=== PATIENT | female | born 1930 | race American Indian/Alaskan Native ===

== ENCOUNTER 2018-01-18 11:19 | Inpatient (IN) | payer MEDICARE, BC ==
[2018-01-18 11:22] VITALS: BMI 29.2
[2018-01-18] MEDS ORDERED: Vancomycin 1gm in NS 250ml 1 GM/250 ML BAG IVPB STA (11:34)
[2018-01-18] MEDS ORDERED: Cefepime 1gm in NS 100ml 1 GM/100 ML BAG IVPB STA (11:34)
--- NOTE | 2018-01-18 11:50 | ED PDOC ---
Arrival/HPI - General Chief Complaint: Abnormal Skin Integrity Time Seen by Provider: 01/18/18 11:23 Historian: Patient - History of Present Illness Narrative History of Present Illness (Text): 01/18/18 11:51 An 87 year old female, whose past medical history includes dementia, presents to the emergency department for evaluation of worsening decubitus ulcers. Patient's family reports patient needs more help at home taking care of these worsening bedsores. Patient's family reports they have been treating wound for two weeks, with no improvement. Patient denies any fever, Shortness of breath, cough or any other complaints at this time. PMD: Dr. Meraz Symptom Onset: Sudden Symptom Course: Unchanged Activities at Onset: Rest Context: Home Past Medical History - Provider Review Nursing Documentation Reviewed: Yes - Infectious Disease Hx of Infectious Diseases: None - Tetanus Immunization Tetanus Immunization: Unknown - Cardiac Hx Cardiac Disorders: No - Pulmonary Hx Respiratory Disorders: No - Neurological Hx Neurological Disorder: Yes Hx Alzheimer's Disease: Yes - HEENT Hx HEENT Disorder: No (WEARS RX GLASSES) - Renal Hx Renal Disorder: No - Endocrine/Metabolic Hx Endocrine Disorders: No - Hematological/Oncological Hx Blood Disorders: No - Integumentary Hx Dermatological Disorder: Yes (BILATERAL KNEE EDEMA +3) - Musculoskeletal/Rheumatological Hx Arthritis: Yes - Gastrointestinal Hx Gastrointestinal Disorders: No - Genitourinary/Gynecological Hx Genitourinary Disorders: Yes Hx Reproductive Disorders: No - Psychiatric Hx Psychophysiologic Disorder: No Hx Anxiety: No Hx Bipolar Disorder: No Hx Depression: No Hx Emotional Abuse: No Hx Hallucinations: No Hx Panic Disorder: No Hx Post Traumatic Stress Disorder: No Hx Psychosis: No Hx Physical Abuse: No Hx Schizophrenia: No Hx Sexual Abuse: No Hx Substance Use: No - Surgical History Hx Orthopedic Surgery: Yes (BILAT HIP) - Anesthesia Hx Anesthesia: Yes Hx Anesthesia Reactions: No Hx Malignant Hyperthermia: No - Suicidal Assessment Feels Threatened In Home Enviroment: No Family/Social History - Physician Review Nursing Documentation Reviewed: Yes Family/Social History: No Known Family HX Smoking Status: Never Smoked Hx Alcohol Use: No Hx Substance Use: No Hx Substance Use Treatment: No Allergies/Home Meds Allergies/Adverse Reactions: Allergies No Known Allergies Allergy (Verified 05/27/15 21:26) Home Medications: Home Meds Medication Instructions Recorded Confirmed Donepezil [Aricept] 1 tab PO HS 01/18/18 01/18/18 Mirtazapine [Remeron] 1 tab PO HS 01/18/18 01/18/18 Simvastatin [Zocor] 1 tab PO HS 01/18/18 01/18/18 Review of Systems - Physician Review All systems were reviewed & negative as marked: Yes - Review of Systems Constitutional: absent: Fevers Respiratory: absent: SOB, Cough Gastrointestinal: absent: Abdominal Pain Skin: Other (decubitus ulcers) Neurological: absent: Headache Physical Exam Vital Signs Reviewed: Yes Vital Signs Temp Pulse Resp BP Pulse Ox 01/18/18 12:15 97.9 F 73 18 142/81 97 Appearance: Positive for: Comfortable, Cachectic, Other (thin) Pain Distress: None Mental Status: Positive for: Alert and Oriented X 3 - Systems Exam Head: Present: Atraumatic, Normocephalic Pupils: Present: PERRL Extroacular Muscles: Present: EOMI Conjunctiva: Present: Normal Mouth: Present: Moist Mucous Membranes Neck: Present: Normal Range of Motion Respiratory/Chest: Present: Clear to Auscultation, Good Air Exchange. No: Respiratory Distress, Accessory Muscle Use Cardiovascular: Present: Regular Rate and Rhythm, Normal S1, S2. No: Murmurs Abdomen: No: Tenderness, Distention, Peritoneal Signs Back: Present: Normal Inspection Upper Extremity: Present: Normal Inspection. No: Cyanosis, Edema Lower Extremity: Present: Normal Inspection. No: Edema Neurological: Present: GCS=15, CN II-XII Intact, Speech Normal Skin: Present: Other (2 stage 2 decubitus ulcers to buttock) Psychiatric: Present: Alert Medical Decision Making ED Course and Treatment: 01/18/18 11:47 Impression: An 87 year old female with decubitus ulcers. Dr. Meraz evaluated patient at bedside. Worsening after outpatient treatment. Requesting antibiotics, SW consult and gen sx consult with admission under her service Plan: -- labs, blood cx, wound cx -- Maxipime, Vancomycin -- Reassess and disposition Prior Visits: Notes and results from previous visits were reviewed. Patient last reported to the emergency department on 05/27/15 for evaluation of right knee pain. - Lab Interpretations I have reviewed the lab results: Yes - Medication Orders Current Medication Orders: Acetaminophen (Tylenol 325mg Tab) 650 mg PO Q6H PRN PRN Reason: Fever >100.4 F Atorvastatin Calcium (Lipitor) 10 mg PO DIN CHRISTINA Donepezil HCl (Aricept) 10 mg PO HS [facility] Famotidine (Pepcid) 20 mg IVP DAILY CHRISTINA Vancomycin HCl (Vancomycin 1gm) 1 gm in 250 mls @ 167 mls/hr IVPB STAT STA PRN Reason: Protocol Stop: 01/18/18 13:03 Cefepime HCl 0.5 gm/ Sodium (Chloride) 100 mls @ 100 mls/hr IVPB Q12H CHRISTINA PRN Reason: Protocol Vancomycin HCl (Vancomycin 750 Mg In Ns) 750 mg in 250 mls @ 166.667 mls/hr IVPB Q12 [facility]INA Mirtazapine (Remeron) 15 mg PO HS [facility] Ondansetron HCl (Zofran Inj) 4 mg IVP Q6H PRN PRN Reason: Nausea/Vomiting Discontinued Medications Cefepime HCl (Maxipime 1gm) 1 gm in 100 mls @ 100 mls/hr IVPB STAT STA PRN Reason: Protocol Stop: 01/18/18 12:33 Last Admin: 01/18/18 11:57 Dose: 100 mls/hr eMAR Start Stop Document 01/18/18 11:57 EQ (Rec: 01/18/18 11:57 EQ [id number]) Intravenous Solution Start Date 01/18/18 Start Time 11:57 - Scribe Statement The provider has reviewed the documentation as recorded by the Scribe Deanna Villafana All medical record entries made by the Derekibpearl were at my direction and personally dictated by me. I have reviewed the chart and agree that the record accurately reflects my personal performance of the history, physical exam, medical decision making, and the department course for this patient. I have also personally directed, reviewed, and agree with the discharge instructions and disposition. Disposition/Present on Arrival - Present on Arrival Any Indicators Present on Arrival: No History of DVT/PE: No History of Uncontrolled Diabetes: No Urinary Catheter: No History of Decub. Ulcer: No History Surgical Site Infection Following: None - Disposition Have Diagnosis and Disposition been Completed?: Yes Diagnosis: Decubitus ulcer, Dementia Disposition: HOSPITALIZED Disposition Time: 11:48 Patient Plan: Admission Condition: FAIR
[2018-01-18] MEDS ORDERED: Vancomycin 1 g Inj IVPB SCH (12:45)
[2018-01-18 12:48] LABS: BASO # 0.03 K/mm3 (0.0-2.0); BASO % 0.4 % (0.0-3.0); EOS # 0.1 (0.0-0.7); EOS % 1.4 % (1.5-5.0); GRAN # 5.64 (1.4-6.5); GRAN % 72.4 % (50.0-68.0); HEMOGLOBIN 13.6 g/dL (12.0-16.0); LYMPH # 1.4 (1.2-3.4); LYMPH % 18.2 % (22.0-35.0); MEAN CELL VOLUME 85.7 fl (80.0-105.0); MEAN CORPUSCULAR HEMOGLOBIN 27.4 pg (25.0-35.0); MEAN CORPUSCULAR HGB CONC 31.9 g/dl (31.0-37.0); MEAN PLATELET VOLUME 9.6 fl (7.0-11.0); MONO # 0.6 (0.1-0.6); MONO % 7.6 % (1.0-6.0); RBC 4.97 10^6/uL (3.5-6.1); RED CELL DISTRIBUTION WIDTH 18.4 % (11.5-14.5); WHITE BLOOD COUNT 7.8 10^3/ul (4.5-11.0)
[2018-01-18 13:14] LABS: ALBUMIN 3.3 g/dL (3.0-4.8); CALCIUM 8.8 mg/dL (8.4-10.5); GFR AFRICAN-AMERICAN > 60; GFR NON-AFRICAN AMERICAN > 60
[2018-01-18 13:15] LABS: ALT/SGPT 36 U/L (7-56); AST/SGOT 43 U/L (14-36); BLOOD UREA NITROGEN 23 mg/dL (7-21)
--- NOTE | 2018-01-18 13:26 | CP.PCM.CON ---
History of Present Illness - History of Present Illness History of Present Illness: Surgery Consult Note for Dr. Brunner Reason for consult: sacral decubitus wound This is an 87 year old female with PMHx dementia who presents to the hospital for sacral wound. Patient with severe dementia. All history per at bedside. Per , the family has first noticed the patient's sacral wound about 2 weeks ago. They were prescribed an unspecified cream which has not helped the wound. Per their PMD, they were told to go to the hospital for further evaluation. The family has a home health aide who helps with ADLs. PMHx: dementia PSHx: bilateral hip replacements Allergies: NKA Social: Lives with , daughter, and son-in-law. Review of Systems - Review of Systems Systems not reviewed;Unavailable: Dementia Past Patient History - Infectious Disease Hx of Infectious Diseases: None - Tetanus Immunizations Tetanus Immunization: Unknown - Past Social History Smoking Status: Never Smoked - CARDIAC Hx Cardiac Disorders: No - PULMONARY Hx Respiratory Disorders: No - NEUROLOGICAL Hx Neurological Disorder: Yes Hx Alzheimer's Disease: Yes - HEENT Hx HEENT Problems: No (WEARS RX GLASSES) - RENAL Hx Chronic Kidney Disease: No - ENDOCRINE/METABOLIC Hx Endocrine Disorders: No - HEMATOLOGICAL/ONCOLOGICAL Hx Blood Disorders: No - INTEGUMENTARY Hx Dermatological Problems: Yes (BILATERAL KNEE EDEMA +3) - MUSCULOSKELETAL/RHEUMATOLOGICAL Hx Arthritis: Yes - GASTROINTESTINAL Hx Gastrointestinal Disorders: No - GENITOURINARY/GYNECOLOGICAL Hx Genitourinary Disorders: Yes Hx Reproductive Disorders: No - PSYCHIATRIC Hx Psychophysiologic Disorder: No Hx Anxiety: No Hx Bipolar Disorder: No Hx Depression: No Hx Emotional Abuse: No Hx Hallucinations: No Hx Panic Symptoms: No Hx Post Traumatic Stress Disorder: No Hx Psychosis: No Hx Physical Abuse: No Hx Schizophrenia: No Hx Sexual Abuse: No Hx Substance Use: No - SURGICAL HISTORY Hx Orthopedic Surgery: Yes (BILAT HIP) - ANESTHESIA Hx Anesthesia: Yes Hx Anesthesia Reactions: No Hx Malignant Hyperthermia: No Meds Allergies/Adverse Reactions: Allergies Allergy/AdvReac Type Severity Reaction Status Date / Time No Known Allergies Allergy Verified 05/27/15 21:26 - Medications Medications: Current Medications Acetaminophen (Tylenol 325mg Tab) 650 mg PO Q6H PRN PRN Reason: Fever >100.4 F Atorvastatin Calcium (Lipitor) 10 mg PO DIN CHRISTINA Donepezil HCl (Aricept) 10 mg PO HS [facility]STINA Famotidine (Pepcid 20mg/50ml Premix) 20 mg IVPB DAILY [facility]RISTINA Cefepime HCl 0.5 gm/ Sodium (Chloride) 100 mls @ 100 mls/hr IVPB Q12 CHRISTINA PRN Reason: Protocol Vancomycin HCl (Vancomycin 750 Mg In Ns) 750 mg in 250 mls @ 166.667 mls/hr IVPB Q12 [facility]STINA Mirtazapine (Remeron) 15 mg PO HS [facility] Ondansetron HCl (Zofran Inj) 4 mg IVP Q6H PRN PRN Reason: Nausea/Vomiting Physical Exam - Constitutional Appears: No Acute Distress - Head Exam Head Exam: ATRAUMATIC, NORMOCEPHALIC - Eye Exam Eye Exam: EOMI, Normal appearance - ENT Exam ENT Exam: Mucous Membranes Moist - Respiratory Exam Respiratory Exam: NORMAL BREATHING PATTERN. absent: Accessory Muscle Use - Cardiovascular Exam Cardiovascular Exam: +S1, +S2 - GI/Abdominal Exam GI & Abdominal Exam: Soft. absent: Tenderness - Extremities Exam Additional comments: Multiple bruises in different stages of healing on the legs bilaterally. Bilateral heel desquamation - Back Exam Additional comments: Stage 2 sacral decubitus ulcer approximately 4 cm in length located above gluteal cleft in the stages of healing. Separate 1-2 cm skin tears on the upper left and right buttocks. - Neurological Exam Neurological exam: Alert - Skin Skin Exam: Dry, Warm Results - Vital Signs Recent Vital Signs: Last Vital Signs Temp 97.9 F 01/18/18 12:15 Pulse 73 01/18/18 12:15 Resp 18 01/18/18 12:15 BP 142/81 01/18/18 12:15 Pulse Ox 97 01/18/18 12:15 - Labs Result Diagrams: 01/18/18 12:30 01/18/18 12:30 Labs: Laboratory Results - last 24 hr 01/18/18 01/18/18 12:30 12:30 WBC 7.8 D RBC 4.97 Hgb 13.6 Hct 42.6 MCV 85.7 MCH 27.4 MCHC 31.9 RDW 18.4 H Plt Count 152 MPV 9.6 Gran % 72.4 H Lymph % (Auto) 18.2 L Payette % (Auto) 7.6 H Eos % (Auto) 1.4 L Baso % (Auto) 0.4 Gran # 5.64 Lymph # (Auto) 1.4 Payette # (Auto) 0.6 Eos # (Auto) 0.1 Baso # (Auto) 0.03 Sodium 150 H Potassium 4.0 Chloride 110 H Carbon Dioxide 28 Anion Gap 16 BUN 23 H Creatinine 0.6 L Est GFR ( Amer) > 60 Est GFR (Non-Af Amer) > 60 Random Glucose 94 Calcium 8.8 Total Bilirubin 0.7 AST 43 H ALT 36 Alkaline Phosphatase 103 Total Protein 6.6 Albumin 3.3 Globulin 3.3 Albumin/Globulin Ratio 1.0 L Assessment & Plan - Assessment and Plan (Free Text) Assessment: This is an 87 year old female with PMHx dementia presenting for sacral wound. Appears to be a stage 2 healing wound. Plan: Air Mattress Reposition Q2H Nursing Communication orders: Place Santyl on sacral wound BID and then apply Optifoam dressing Apply heel protectors Discussed with Dr. Kannan Lee PGY-1
[2018-01-18] MEDS: Collagenase 250 Units/gm Ointment(30 gm) TOP SCH (18:06)
--- NOTE | 2018-01-18 18:18 | HP ---
DATE OF EXAM: 01/18/2018 HISTORY OF PRESENT ILLNESS: This 87-year-old female was examined in the [facility] ER and this case was reviewed in detail with herself, her Riccardo and physician, Isabell Faulkner, medical doctor. This 87-year-old female was brought to [facility] ER by her , Riccardo. She has been failing at home and is here for worsening decubitus ulcers. PAST MEDICAL HISTORY: Significant for Alzheimer dementia. She is wheelchair bound. She has a history of degenerative arthritis and obesity, and the patient was home with family and receiving local wound care to sacral bed sores with no improvement. She is now here for further evaluation of the above. REVIEW OF SYSTEMS: HEENT: Head review: No headache or seizure. Eyes review: No change in visual acuity. Ears review: No hearing loss. Throat review: No swallowing difficulty. NECK: No stiffness. CARDIAC: No chest pain. PULMONARY: No hemoptysis. GI: No hematemesis. : No dysuria. SKIN: Sacral decubiti. VASCULAR: The patient has no claudication. PSYCHOLOGIC: She has Alzheimer dementia. NEUROLOGIC: She has chronic Alzheimer dementia. SURGICAL HISTORY: She is status post bilateral hip replacements. SOCIAL HISTORY: She is a nondrinker, nonsmoker, non IV drug misuser. She is a retired schoolteacher. OUTPATIENT MEDICATIONS: Included Aricept 10 mg at bedtime, Remeron 15 mg at bedtime, and Zocor 10 mg p.o. at bedtime. FAMILY HISTORY: Noncontributory. PHYSICAL EXAMINATION: VITAL SIGNS: Temperature 99.2, respirations 16, pulse 80, blood pressure 130/72. Monitor shows normal sinus rhythm. HEENT: Head: Normocephalic, atraumatic. Eyes: No icterus. Ears: Clear. Throat: Noninjected. NECK: Supple. HEART: Regular, S1, S2. No pathological rubs, murmurs, or gallops. LUNGS: Clear. ABDOMEN: Soft. EXTREMITIES: No edema. SKIN: Stage II decubitus ulcer on buttocks. VASCULAR: Legs warm to touch. PSYCHOLOGIC: Alert. NEURO: Moves all four extremities to painful stimuli. LABORATORY DATA: Current labs are pending. Blood cultures and wound cultures have been ordered. The plan is to admit this patient to medical-surgical. I will order a consultation with Dr. Angel Brunner from Surgery regarding debridement of surgical wounds. She will be started on Maxipime 1 g IV every 24 hours and vancomycin 750 mg IV every 12 hours based on blood testing results. She will be ordered to have her medication from home and I will discuss with Social Service, home care needs for this patient as per family request. All of the above was discussed in detail with Dr. Faulkner in the emergency room as well as her , Riccardo Castillo. Greater than 75 minutes was spent in the care management, review of labs, orders, x-rays, workup, and treatment wishes for this patient. All questions were answered. Miranda Meraz MD MTDD
[2018-01-18] MEDS: Cefepime 0.5 GM in Sodium Chloride 0.9% 100 ML IVPB SCH (22:01)
[2018-01-18] MEDS ORDERED: Pneumococcal 23-Valent Vaccine IM ONE (22:29)
[2018-01-18] MEDS: Vancomycin 750mg 750 MG/250 ML BAG IVPB SCH (23:03)
[2018-01-19] MEDS ORDERED: Famotidine 20mg/50ml Premix IVPB SCH (10:00)
[2018-01-19] MEDS: Cefepime 0.5 GM in Sodium Chloride 0.9% 100 ML IVPB SCH ×2 (11:12→22:00)
[2018-01-19] MEDS: Vancomycin 750mg 750 MG/250 ML BAG IVPB SCH (11:13)
[2018-01-19] MEDS: Collagenase 250 Units/gm Ointment(30 gm) TOP SCH ×2 (11:20→17:53)
--- NOTE | 2018-01-19 14:14 | PN ---
DATE: 01/19/2018 SUBJECTIVE: This 87-year-old female remains hospitalized. This case was reviewed with Dr. Brunner from Surgery who has evaluated the patient regarding her sacral decubitus. At present, she has wound cultures pending as well as blood cultures that show no growth. She was admitted with slow to heal decubitus ulcer. The family has been attempting to treat as an outpatient with Silvadene and dry sterile dressings. Of note, the patient has severe dementia. She is basically bed and wheelchair bound and at present denies any fever, chills, chest pain or shortness of breath. PHYSICAL EXAMINATION: VITAL SIGNS: Her temperature is 98.2, respirations 18, pulse 78 and blood pressure 132/93 with a pulse ox of 95% on room air. HEENT: Head: Normocephalic, atraumatic. Eyes: No icterus. Ears: Clear. Throat: Noninjected. NECK: Supple. HEART: Regular S1, S2. LUNGS: Clear. ABDOMEN: Soft. EXTREMITIES: No edema. Examination of her sacrum shows a stage II 4 cm in length sacral ulcer located above her gluteal cleft with additional 1-2 cm skin tears noted on the right and left buttock area as well. VASCULAR: Legs warm to touch. PSYCHOLOGICAL: Alert. NEUROLOGIC: Consistent with chronic dementia. LABORATORY DATA: White count 7800, hemoglobin 13.6, hematocrit 42.6, platelets 152,000. Sodium 150, K 4, chloride 110, bicarb 28, BUN 23, creatinine 0.6, random sugar 94. Bilirubin 0.7, AST 43, ALT 36, alkaline phosphatase 103. 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 and a dry sterile dressing while maintaining this patient on an air mattress with heel protectors as well as fall precautions, aspiration precautions and turning the patient every 2 hours to prevent further skin irritation. She continues on a mechanical chopped, thin liquid diet with aspiration precautions. She will continue on Zofran 4 mg IV every 6 hours p.r.n. nausea, vomiting; vancomycin 750 mg IV every 12; Tylenol 650 mg p.o. every 6 hours p.r.n. pain or temperature greater than 101; Remeron 15 mg p.o. at bedtime; Pepcid 20 mg p.o. daily; Maxipime 0.5 g IV every 12; Lipitor 10 mg p.o. at dinner time; D5W at 100 mL/hour and Aricept 10 mg p.o. at bedtime. I will order a repeat basic metabolic panel for the a.m. I am awaiting the results of blood and wound cultures. Based on her clinical results and response, additional testing and interventions will be entertained. It is the family's desire for this patient to return to home with them providing 24 hours supervision and I will ask Social Service to discuss needed equipment including hospital bed and additional assistance aides with the who provides 24 hour supervision of this patient along with visiting nurse and home health aides. Greater than 35 minutes was spent in the care, management, review of labs, orders, x-rays and discussion of this patient with Surgery, Social Service and family. Miranda Meraz MD MTDD
[2018-01-20] MEDS: Vancomycin 750mg 750 MG/250 ML BAG IVPB SCH ×3 (00:28→22:31)
--- NOTE | 2018-01-20 01:34 | CON ---
DATE: HISTORY OF PRESENT ILLNESS: Cary Castillo is seen with the resident, I reviewed her note and agree with it. The patient is an 87-year-old bed-bound female, who was brought in by the family because of dementia and increasing ulcer in the sacrum. Notably the family was treating the patient at home and noticed it got worse. She has been bed-bound and is otherwise chronically ill. PHYSICAL EXAMINATION: I agreed with the resident's note from 01/18/2018. The bedsore is noted to be granulating with several areas of brief epithelization, the edges are epithelializing. The base is granular with some fibrin. PLAN: The plan will be to offload the patient using an air mattress, frequent turning and dry dressing. I would expect this to heal within 2 to 3 weeks. Angel Brunner MD
[2018-01-20 08:19] LABS: BLOOD UREA NITROGEN 14 mg/dL (7-21); GFR AFRICAN-AMERICAN > 60; GFR NON-AFRICAN AMERICAN > 60
[2018-01-20] MEDS ORDERED: Potassium Chloride 20 mEq ER Tab PO ONE (09:14)
[2018-01-20] MEDS: Cefepime 0.5 GM in Sodium Chloride 0.9% 100 ML IVPB SCH ×2 (10:23→21:32)
[2018-01-20] MEDS: Collagenase 250 Units/gm Ointment(30 gm) TOP SCH ×2 (10:26→17:40)
--- NOTE | 2018-01-20 14:37 | CARD ---
APPROVED REPORT EKG Measurement Heart [id number] <Conclusion> Sinus rhythm with APCs Left axis deviation PRWP NSSTW changes Prolonged QTc
--- NOTE | 2018-01-20 21:13 | PN ---
DATE: 01/20/2018 SUBJECTIVE: This 87-year-old female was examined at the bedside in the presence of her nurse, Ally Avila, registered nurse. The patient and I examined her sacral decubitus today which is clean, dry, and being treated with Santyl and an Optifoam dressing. The patient remains alert but confused in the setting of advanced Alzheimer's. She denies any fever, chills, chest pain, or shortness of breath and has exhibited no fevers while hospitalized. PHYSICAL EXAMINATION: VITAL SIGNS: Temperature is 97.8, respirations 18, pulse 82, and blood pressure 107/61 with a pulse ox of 98% room air. HEENT: Head: Normocephalic, atraumatic. Eyes: No icterus. Ears: Clear. Throat: Noninjected. NECK: Supple. HEART: Regular S1, S2. LUNGS: Clear. ABDOMEN:. Soft. EXTREMITIES: No edema. SKIN: Her sacral decubitus is clean and dry, measuring approximately 4 cm in length. Optifoam dressing was reapplied. VASCULAR: Legs warm to touch. NEUROLOGIC: Intact. LABORATORY DATA: White count 7800, hemoglobin 13.6, hematocrit 42.6, platelets 152,000. Sodium 145, K 3.5, chloride 110, bicarb 27, BUN 14, creatinine 0.51, random blood sugar 121. IMPRESSION: This is an 87-year-old female with a home-acquired sacral decubitus in a patient with advanced Alzheimer disease, who is basically wheelchair and bed-bound with comorbidities of hyperlipidemia, peptic ulcer disease with gastroesophageal reflux disease, degenerative arthritis, and obesity status post bilateral hip fracture repairs. PLAN: To continue Aricept 10 mg p.o. at bedtime. She continues on D5W at 100 mL/hour for recent hypernatremia, which is now improved from a sodium of 150 to 145 today. For her hypokalemia, she has been ordered a dose of potassium chloride once. She will continue Lipitor 10 mg at dinner time, Maxipime 0.5 g IV every 12 hours, vancomycin 750 mg IV every 12 hours, Pepcid 20 mg p.o. daily, Remeron 15 mg p.o. at bedtime. She continues with Santyl 1 g topically b.i.d. and an Optifoam dressing b.i.d. as well. She has been ordered for a right upper extremity duplex venous Doppler because of noted swelling and will remain on air mattress heel protectors, aspiration and fall precautions while being turned every 2 hours to prevent further skin breakdown. Social service will be arranging for a hospital bed at home along with VNA nursing care and once the patient's testings and laboratories are stabilized, she will be discharged to home to the care of her family who provides 24 hours supervision of this gretchen but debilitated patient. She will require a hospital bed at home due to her bedridden status and her current decubitus ulcer. The patient had failed treatment at home in her regular bed. She requires a hospital bed for safety sake as well. Miranda Meraz MD MTDD
--- NOTE | 2018-01-20 22:20 | US ---
PROCEDURE: Right upper extremity venous US CLINICAL HISTORY: Arm pain and swelling Evaluate for deep venous thrombosis. PHYSICIAN(S): Jeff Mata M.D FINDINGS: The visualized rightinternal jugular vein is sonographically normal and compressible. No evidence of obstruction or thrombus is seen. The visualized segments of the right subclavian vein are patent with normal waveforms. No sonographic evidence of obstruction or thrombosis is seen. The visualized deep venous system of the proximal right upper extremity is sonographically normal and compressible. IMPRESSION: 1. No sonographic evidence for deep venous thrombosis in the visualized segments of the right upper extremity.
[2018-01-21] MEDS: Cefepime 0.5 GM in Sodium Chloride 0.9% 100 ML IVPB SCH (09:25)
[2018-01-21] MEDS: Vancomycin 750mg 750 MG/250 ML BAG IVPB SCH (09:28)
[2018-01-21] MEDS: Collagenase 250 Units/gm Ointment(30 gm) TOP SCH ×2 (09:28→19:25)
[2018-01-21] MEDS ORDERED: Pneumococcal 23-Valent Vaccine IM ONE (14:29)
[2018-01-21 15:39] VITALS: RESP 18
[2018-01-21] MEDS ORDERED: Non Formulary Medication (Simvastatin [Zocor] 1 TAB) PO SCH (22:00)
--- NOTE | 2018-01-22 00:49 | PN ---
DATE: 01/21/2018 SUBJECTIVE: This is a 87-year-old female was examined at her bedside. This case was reviewed in detail with nurse Racquel Araiza, registered nurse. The patient was readied for discharge, prescriptions were outlined. She was resting quietly. PHYSICAL EXAMINATION: VITAL SIGNS: Showed temperature 97.9, respirations 16, pulse 63, and blood pressure 116/56, with a pulse ox of 100% room air. LABORATORY DATA: White count 7800, hemoglobin 13.6, hematocrit 42.6, and platelets 152,000. Sodium 145, K 3.5, chloride 110, bicarb 27, BUN 14, creatinine 0.5 and random blood sugar 121. ASSESSMENT AND PLAN: The patient was being successfully treated with collagenase topically b.i.d. and Optifoam dressings and was given a prescription for Keflex 250 mg p.o. four times daily, #40 for wound culture showing Escherichia coli sensitive to Ancef. When nursing staff tried to contact the family to accept this patient for discharge to home, no one was available. Hospital bed has been ordered due to bedridden status and sacral ulcer. A hospital bed is required for frequent positioning to alleviate pain not feasible with an ordinary bed. Her family was instructed on wound care, visiting nurses were requested and referral for home care has been obtained. Ultimate plan will be to reach out to family for acceptance of this patient at home and then to ready the patient for discharge to home where she will continue on Aricept 10 mg p.o. at bedtime, Lipitor 10 mg p.o. at bedtime, Pepcid 20 mg daily, Remeron 15 mg p.o. at bedtime, Santyl to the sacral wound b.i.d. and Optifoam dressings b.i.d. All of the above was discussed in detail with nursing. All questions were answered. Miranda Meraz MD [facility]
[2018-01-22] MEDS: Collagenase 250 Units/gm Ointment(30 gm) TOP SCH (07:05)
[2018-01-22 09:56] VITALS: BP 135/62; PULSE 82; TEMP 97.6; O2SAT 95
== END 2018-01-22 12:30 | disposition home health service (06) | DRG 594 ==
LOC: ED 11:19 → ERH 11:34 → 5RSO 16:03
PROVIDERS: ADMIT Internal Medicine; ATTEND Internal Medicine
PROC: 3E0234Z Introduction of Serum, Toxoid and Vaccine into Muscle, Percutaneous Approach (ICD-10-PCS; principal; 2018-01-21)
DX: L89.159 Pressure ulcer of sacral region, unspecified stage (principal); E78.5 Hyperlipidemia, unspecified; G30.9 Alzheimer's disease, unspecified; F02.80 Dementia in other diseases classified elsewhere, unspecified severity, without behavioral disturbance, psychotic disturbance, mood disturbance, and anxiety; K21.9 Gastro-esophageal reflux disease without esophagitis; K27.9 Peptic ulcer, site unspecified, unspecified as acute or chronic, without hemorrhage or perforation; M19.90 Unspecified osteoarthritis, unspecified site; E66.9 Obesity, unspecified; Z74.01 Bed confinement status; Z79.899 Other long term (current) drug therapy; Z96.643 Presence of artificial hip joint, bilateral; Z99.3 Dependence on wheelchair; Z23 Encounter for immunization; B95.2 Enterococcus as the cause of diseases classified elsewhere

== ENCOUNTER 2018-03-13 10:14 | Inpatient (IN) | payer MEDICARE, BC ==
--- NOTE | 2018-03-13 11:01 | ED PDOC ---
Arrival/HPI - General Chief Complaint: Abnormal Skin Integrity Time Seen by Provider: 03/13/18 10:37 Historian: Patient EM Caveat: Acuity of Condition - History of Present Illness Narrative History of Present Illness (Text): 03/13/18 10:56 Pt is a 87 year old female, with PMH of dementia and sacral decubitus ulcer BIBA for evaluation of worsening ulcer. Family at bedside, states that they have not had homecare for wound care in over a week. contacted PMD Dr Meraz who advised to go to ED. Pt was treated and admitted in January 2018 for stage 2 sacral ulcer that was then managed well at home until homecare ceased. Denies fever, pain, shortness of breath, chest pain, abdominal pain , change in bladder or bowel, cough or any other complaints. Time/Duration: > week Symptom Onset: Gradual Symptom Course: Worsening Quality: Pressure, Tightness Severity Level: 4 Activities at Onset: Rest Context: Home Past Medical History - Provider Review Nursing Documentation Reviewed: Yes - Travel History Have you recently traveled outside [place] w/in the past 3 mons?: No - Infectious Disease Hx of Infectious Diseases: None - Tetanus Immunization Tetanus Immunization: Unknown - Cardiac Hx Cardiac Disorders: Yes - Pulmonary Hx Respiratory Disorders: No - Neurological Hx Neurological Disorder: Yes Hx Alzheimer's Disease: Yes Hx Dementia: Yes - HEENT Hx HEENT Disorder: No (WEARS RX GLASSES) - Renal Hx Renal Disorder: No - Endocrine/Metabolic Hx Endocrine Disorders: No - Hematological/Oncological Hx Blood Disorders: No - Integumentary Hx Dermatological Disorder: Yes (BILATERAL KNEE EDEMA +3) Other/Comment: left buttock skin tear, 0.4cm x 3cm wound bed red,b/l buttock stage 2 pressure ulcer wound bed red 2cm x 5cm unapproximated - Musculoskeletal/Rheumatological Hx Falls: Yes (past) - Gastrointestinal Hx Gastrointestinal Disorders: No - Genitourinary/Gynecological Hx Genitourinary Disorders: Yes Hx Incontinence: Yes - Psychiatric Hx Psychophysiologic Disorder: No Hx Anxiety: No Hx Bipolar Disorder: No Hx Depression: No Hx Emotional Abuse: No Hx Hallucinations: No Hx Panic Disorder: No Hx Post Traumatic Stress Disorder: No Hx Psychosis: No Hx Physical Abuse: No Hx Schizophrenia: No Hx Sexual Abuse: No Hx Substance Use: No - Surgical History Hx Orthopedic Surgery: Yes (BILAT HIP replacements) Other/Comment: fluid drained from knee - Anesthesia Hx Anesthesia: Yes Hx Anesthesia Reactions: No Hx Malignant Hyperthermia: No - Suicidal Assessment Feels Threatened In Home Enviroment: No Family/Social History - Physician Review Nursing Documentation Reviewed: Yes Family/Social History: Unknown Family HX Smoking Status: Never Smoked Hx Alcohol Use: No Hx Substance Use: No Hx Substance Use Treatment: No Allergies/Home Meds Allergies/Adverse Reactions: Allergies No Known Allergies Allergy (Verified 03/13/18 10:33) Home Medications: Home Meds Medication Instructions Recorded Confirmed Donepezil [Aricept] 1 tab PO HS 01/18/18 03/13/18 Mirtazapine [Remeron] 1 tab PO HS 01/18/18 03/13/18 Simvastatin [Zocor] 1 tab PO HS 01/18/18 03/13/18 Review of Systems - Review of Systems Systems not reviewed;Unavailable: Dementia Constitutional: Normal, Fatigue Eyes: Normal. absent: Vision Changes ENT: Normal Respiratory: Normal. absent: SOB Cardiovascular: Normal. absent: Chest Pain Gastrointestinal: Normal. absent: Abdominal Pain Genitourinary Female: Normal. absent: Dysuria Musculoskeletal: Normal Skin: Normal, Ulcer (sacral) Neurological: Normal Endocrine: Normal Hemo/Lymphatic: Normal Psychiatric: Normal Physical Exam Vital Signs Reviewed: Yes Vital Signs Temp Pulse Resp BP Pulse Ox 03/13/18 15:20 98.4 F 90 18 111/69 96 03/13/18 13:00 76 18 122/76 98 03/13/18 11:00 71 19 115/81 95 03/13/18 10:38 98 F Temperature: Afebrile Blood Pressure: Normal Pulse: Regular Respiratory Rate: Normal Appearance: Positive for: Well-Appearing, Non-Toxic, Comfortable Pain Distress: Mild Mental Status: Positive for: Confused - Systems Exam Head: Present: Atraumatic, Normocephalic Pupils: Present: PERRL Extroacular Muscles: Present: EOMI Conjunctiva: Present: Normal Mouth: Present: Moist Mucous Membranes Neck: Present: Normal Range of Motion Respiratory/Chest: Present: Clear to Auscultation, Good Air Exchange. No: Respiratory Distress, Accessory Muscle Use Cardiovascular: Present: Regular Rate and Rhythm, Normal S1, S2. No: Murmurs Abdomen: No: Tenderness, Distention, Peritoneal Signs Back: Present: Normal Inspection. No: CVA Tenderness Upper Extremity: Present: Normal Inspection, Normal ROM, NORMAL PULSES, Capillary Refill < 2s. No: Cyanosis, Edema Lower Extremity: Present: Normal Inspection, NORMAL PULSES, Capillary Refill < 2 s. No: Edema, CALF TENDERNESS Neurological: Present: GCS=15, CN II-XII Intact, Speech Normal, Motor Func Grossly Intact, Normal Sensory Function Skin: Present: Warm, Dry, Normal Color, Other (sacral decubitus ulcer but d/t necrosis, hard to stage). No: Rashes Psychiatric: Present: Alert, Normal Insight, Normal Concentration Medical Decision Making ED Course and Treatment: 03/13/18 11:01 Impression Pt is a 87 year old female, with PMH of dementia and sacral decubitus ulcer BIBA for evaluation of worsening ulcer On exam, sacral ulcer wet mild granulation tissue, no purulent discharge, malodorous, tissue compromise and breakdown extending beyond border, family notes ulcer extends deeply, unable to assess fully on exam Plan contact Dr Meraz Labs, UA oxygen via NC EKG, fluids Assess and dispo Progress Note EKG: Sinus rhythm with PACs and non-specific T wave abnormalities, Rate of 100 03/13/18 12:48 difficult to draw blood in pt; attempted multiple times phlebotomy called to do draw Dr Meraz evaluated pt at bedside, obtained wound culture and advised to have Dr Villavicencio, Dr Monroe and Dr Brunner for consultations in addition, will start Vanco and Rocephin once labs are done 03/13/18 12:52 Pt resting comfortably; WBC: 14.9, K 3.2, Lactate 2.0 Admission to med/surg for necrotizing sacral decubitus ulcer and leukocystosis - Lab Interpretations Microbiology Results: Microbiology Results 03/13/18 13:00 Sacral Gram Stain - Final Lab Results: 03/13/18 13:00 03/13/18 13:00 Lab Results 03/13/18 13:00: pO2 55, VBG pH 7.40, VBG pCO2 48.0, VBG HCO3 29.7 H, VBG Total CO2 31.2 H, VBG O2 Sat (Calc) 92.8 H, VBG Base Excess 4.0 H, VBG Potassium 3.1 L , Sodium 140.0, Chloride 105.0, Glucose 117 H, Lactate 2.0, FiO2 21.0, Venous Blood Potassium 3.1 L 03/13/18 13:00: PT 12.3, INR 1.07, APTT 29.7 03/13/18 13:00: Sodium 141, Chloride 102, Potassium 3.2 L, Carbon Dioxide 28, Anion Gap 13, BUN 10, Creatinine 0.4 L, Est GFR ( Amer) > 60, Est GFR ( Non-Af Amer) > 60, Random Glucose 115 H, Calcium 8.5, Total Bilirubin 0.6, AST 25, ALT 33, Alkaline Phosphatase 95, Total Protein 6.4, Albumin 3.0, Globulin 3.4, Albumin/Globulin Ratio 0.9 L 03/13/18 13:00: WBC 14.9 H D, RBC 4.46, Hgb 12.7, Hct 39.1, MCV 87.7, MCH 28.5, MCHC 32.5, RDW 18.7 H, Plt Count 262, MPV 9.3, Gran % 81.7 H, Lymph % (Auto) 10.9 L, Bartholomew % (Auto) 6.6 H, Eos % (Auto) 0.7 L, Baso % (Auto) 0.1, Gran # 12.14 H, Lymph # (Auto) 1.6, Bartholomew # (Auto) 1.0 H, Eos # (Auto) 0.1, Baso # (Auto ) 0.02 - EKG Interpretation Interpreted by ED Physician: Yes - Medication Orders Current Medication Orders: Acetaminophen (Tylenol 325mg Tab) 650 mg PO Q6H PRN PRN Reason: Temperature Atorvastatin Calcium (Lipitor) 10 mg PO DIN CHRISTINA Collagenase (Santyl) 1 gm TOP BID CHRISTINA Last Admin: 03/13/18 17:42 Dose: 1 applic Donepezil HCl (Aricept) 10 mg PO HS CHRISTINA Last Admin: 03/13/18 22:56 Dose: 10 mg Vancomycin HCl (Vancomycin 1gm) 1 gm in 250 mls @ 167 mls/hr IVPB Q12H CHRISTINA PRN Reason: Protocol Stop: 03/22/18 18:46 Last Admin: 03/14/18 05:56 Dose: 167 mls/hr eMAR Start Stop Document 03/14/18 05:56 RM (Rec: 03/14/18 05:56 RM [id number]) Intravenous Solution Start Date 03/14/18 Start Time 06:25 End Date 03/14/18 End time 07:55 Total Infusion Time 90 Meropenem (Merrem Iv 1 Gm Premix) 50 mls @ 100 mls/hr IVPB Q8 CHRISTINA PRN Reason: Protocol Stop: 03/22/18 18:46 Last Admin: 03/14/18 05:55 Dose: 100 mls/hr eMAR Start Stop Document 03/14/18 05:55 RM (Rec: 03/14/18 05:56 RM [email or web address]) Intravenous Solution Start Date 03/14/18 Start Time 05:55 End Date 03/14/18 End time 06:25 Total Infusion Time 30 Mirtazapine (Remeron) 15 mg PO HS CHRISTINA Last Admin: 03/13/18 22:56 Dose: 15 mg Ondansetron HCl (Zofran Inj) 4 mg IVP Q6H PRN PRN Reason: Nausea/Vomiting Discontinued Medications Sodium Chloride (Sodium Chloride 0.9%) 500 mls @ 999 mls/hr IV .Q31M STA Stop: 03/13/18 11:39 Last Admin: 03/13/18 11:40 Dose: 999 mls/hr eMAR Start Stop Document 03/13/18 11:40 SZA (Rec: 03/13/18 12:05 DEBRA [id number]) Intravenous Solution Start Date 03/13/18 Start Time 11:40 End Date 03/13/18 End time 12:10 Total Infusion Time 30 Ceftriaxone Sodium (Rocephin 1 Gram Ivpb) 1 gm in 100 mls @ 100 mls/hr IVPB DAILY CHRISTINA PRN Reason: Protocol Last Admin: 03/13/18 14:24 Dose: 100 mls/hr eMAR Start Stop Document 03/13/18 14:24 SZA (Rec: 03/13/18 14:24 JULIOA [id number]) Intravenous Solution Start Date 03/13/18 Start Time 14:20 End Date 03/13/18 End time 14:50 Total Infusion Time 30 Vancomycin HCl (Vancomycin 1gm) 1 gm in 250 mls @ 167 mls/hr IVPB DAILY CHRISTINA PRN Reason: Protocol Last Admin: 03/13/18 15:15 Dose: 167 mls/hr eMAR Start Stop Document 03/13/18 15:15 SZA (Rec: 03/13/18 15:16 DEBRA [id number]) Intravenous Solution Start Date 03/13/18 Start Time 15:16 End Date 03/13/18 End time 16:46 Total Infusion Time 90 Sodium Chloride (Sodium Chloride 0.9%) 500 mls @ 999 mls/hr IV .Q31M STA Stop: 03/13/18 15:31 Last Admin: 03/13/18 15:00 Dose: 999 mls/hr eMAR Start Stop Document 03/13/18 15:00 DEBRA (Rec: 03/13/18 15:19 DEBRA [id number]) Intravenous Solution Start Date 03/13/18 Start Time 15:00 End Date 03/13/18 End time 15:30 Total Infusion Time 30 Potassium Chloride (K-Dur 20 Meq Er Tab) 20 meq PO STAT STA Stop: 03/13/18 14:31 Last Admin: 03/13/18 15:17 Dose: 20 meq Potassium Chloride (Potassium Chloride Oral Soln) 40 meq PO ONCE ONE Stop: 03/13/18 18:51 Last Admin: 03/13/18 20:42 Dose: 40 meq Disposition/Present on Arrival - Present on Arrival Any Indicators Present on Arrival: Yes History of DVT/PE: No History of Uncontrolled Diabetes: No Urinary Catheter: No History of Decub. Ulcer: Yes (stage 3) History Surgical Site Infection Following: None - Disposition Have Diagnosis and Disposition been Completed?: Yes Diagnosis: Sacral decubitus ulcer, Leukocytosis, Dementia Disposition: HOSPITALIZED Disposition Time: 15:00 Patient Plan: Admission Patient Problems: Current Active Problems Problem Status Onset Dementia Acute Leukocytosis Acute Sacral decubitus ulcer Acute Condition: FAIR
[2018-03-13] MEDS ORDERED: Sodium Chloride 0.9% 500 ML IV STA ×2 (11:09→15:01)
[2018-03-13 13:11] LABS: BASO # 0.02 K/mm3 (0.0-2.0); BASO % 0.1 % (0.0-3.0); EOS # 0.1 (0.0-0.7); EOS % 0.7 % (1.5-5.0); GRAN # 12.14 (1.4-6.5); GRAN % 81.7 % (50.0-68.0); HEMOGLOBIN 12.7 g/dL (12.0-16.0); LYMPH # 1.6 (1.2-3.4); LYMPH % 10.9 % (22.0-35.0); MEAN CELL VOLUME 87.7 fl (80.0-105.0); MEAN CORPUSCULAR HEMOGLOBIN 28.5 pg (25.0-35.0); MEAN CORPUSCULAR HGB CONC 32.5 g/dl (31.0-37.0); MEAN PLATELET VOLUME 9.3 fl (7.0-11.0); MONO % 6.6 % (1.0-6.0); RBC 4.46 10^6/uL (3.5-6.1); RED CELL DISTRIBUTION WIDTH 18.7 % (11.5-14.5); WHITE BLOOD COUNT 14.9 10^3/ul (4.5-11.0)
[2018-03-13 13:14] LABS: VENOUS BLOOD GAS PO2 55 mm/Hg (30-55)
[2018-03-13 13:21] LABS: ALB/GLOB RATIO 0.9 (1.1-1.8); ALT/SGPT 33 U/L (7-56); AST/SGOT 25 U/L (14-36); BLOOD UREA NITROGEN 10 mg/dL (7-21); CALCIUM 8.5 mg/dL (8.4-10.5); GFR AFRICAN-AMERICAN > 60; GFR NON-AFRICAN AMERICAN > 60
[2018-03-13 13:38] LABS: INR 1.07 (0.93-1.08); PARTIAL THROMBOPLASTIN TIME 29.7 Seconds (25.1-36.5); PROTHROMBIN TIME 12.3 SECONDS (9.4-12.5)
[2018-03-13] MEDS ORDERED: cefTRIAXone 1 gm 1 GM/100 ML BAG IVPB SCH (14:00)
[2018-03-13] MEDS ORDERED: Vancomycin 1gm in NS 250ml 1 GM/250 ML BAG IVPB SCH (14:15)
[2018-03-13] MEDS ORDERED: Potassium Chloride 20 mEq ER Tab PO STA (14:30)
--- NOTE | 2018-03-13 14:56 | CARD ---
APPROVED REPORT EKG Measurement Heart [id number] ID [id number] <Conclusion> Sinus rhythm with premature atrial complexes Nonspecific T wave abnormality LAD Mildly prolonged QTc
--- NOTE | 2018-03-13 16:03 | CP.PCM.CON ---
History of Present Illness - History of Present Illness History of Present Illness: General Surgery Consult Note for Dr. Brunner Consulted for: Sacral Decubitus ulcer Cary Castillo is an 87 yr old female with a PMH of decubitus ulcer, HLD and alzheimers type dementia who presents with a 1 month history of Sacral Decubitus ulcer with worsening appearance and odor over the past week. Patient denies any pain, nausea or vomiting. Patient is alert but is not well oriented and has difficulty communicating d/t lack of teeth/ dentures. Family is present at bedside and provides majority of medical history. Patient was last admitted for the same ulcer at [facility] in January and sees Dr. Meraz outpatient for routine wound care. Patient's family indicates that she had received home wound care in the past but has not been receiving it this past month. Wound has previously been treated with Santyl, medi honey and silver nitrate with positive improvement. PMH: HLD Alzheimer's dementia PSH: Debridement of sacral wound by Dr. Brunner in January, bilateral hip replacement at [facility] ALL: NKDA SOCIAL: denies drugs, alcohol, current smoking (former smoker many years ago) Review of Systems - Cardiovascular Additional comments: Pressure ulcers healing appropriately both heels - Respiratory Respiratory: absent: Cough - Gastrointestinal Gastrointestinal: absent: Abdominal Pain - Genitourinary Genitourinary: Urinary Incontinence - Musculoskeletal Musculoskeletal: Atrophy - Integumentary Integumentary: Skin Ulcer - Psychiatric Additional comments: Alzheimers Dementia Past Patient History - Infectious Disease Hx of Infectious Diseases: None - Tetanus Immunizations Tetanus Immunization: Unknown - Past Medical History & Family History Past Medical History?: Yes - Past Social History Smoking Status: Former Smoker Chewing Tobacco Use: No Cigar Use: No Alcohol: None Drugs: Denies Home Situation {Lives}: With Family - CARDIAC Hx Hypercholesterolemia: Yes - PULMONARY Hx Respiratory Disorders: No - NEUROLOGICAL Hx Neurological Disorder: Yes Hx Alzheimer's Disease: Yes Hx Dementia: Yes - HEENT Hx HEENT Problems: No (WEARS RX GLASSES) Hx Difficulty Chewing: Yes (patient has no teeth and does not wear dentures) - RENAL Hx Chronic Kidney Disease: No - ENDOCRINE/METABOLIC Hx Endocrine Disorders: No - HEMATOLOGICAL/ONCOLOGICAL Hx Blood Disorders: No - INTEGUMENTARY Hx Dermatological Problems: Yes (BILATERAL KNEE EDEMA +3) Other/Comment: left buttock skin tear, 0.4cm x 3cm wound bed red,b/l buttock stage 2 pressure ulcer wound bed red 2cm x 5cm unapproximated - MUSCULOSKELETAL/RHEUMATOLOGICAL Hx Falls: Yes (past) - GASTROINTESTINAL Hx Gastrointestinal Disorders: No - GENITOURINARY/GYNECOLOGICAL Hx Genitourinary Disorders: Yes Hx Incontinence: Yes - PSYCHIATRIC Hx Psychophysiologic Disorder: No Hx Anxiety: No Hx Bipolar Disorder: No Hx Depression: No Hx Emotional Abuse: No Hx Hallucinations: No Hx Panic Symptoms: No Hx Post Traumatic Stress Disorder: No Hx Psychosis: No Hx Physical Abuse: No Hx Schizophrenia: No Hx Sexual Abuse: No Hx Substance Use: No - SURGICAL HISTORY Hx Orthopedic Surgery: Yes (BILAT HIP replacements) Other/Comment: fluid drained from knee - ANESTHESIA Hx Anesthesia: Yes Hx Anesthesia Reactions: No Hx Malignant Hyperthermia: No Meds Allergies/Adverse Reactions: Allergies Allergy/AdvReac Type Severity Reaction Status Date / Time No Known Allergies Allergy Verified 03/13/18 10:33 - Medications Medications: Current Medications Collagenase (Santyl) 1 gm TOP BID CHRISTINA Ceftriaxone Sodium (Rocephin 1 Gram Ivpb) 1 gm in 100 mls @ 100 mls/hr IVPB DAILY CHRISTINA PRN Reason: Protocol Last Admin: 03/13/18 14:24 Dose: 100 mls/hr Vancomycin HCl (Vancomycin 1gm) 1 gm in 250 mls @ 167 mls/hr IVPB DAILY CHRISTINA PRN Reason: Protocol Last Admin: 03/13/18 15:15 Dose: 167 mls/hr Physical Exam - Constitutional Appears: Well - Head Exam Head Exam: ATRAUMATIC - Eye Exam Eye Exam: Normal appearance - ENT Exam ENT Exam: Mucous Membranes Moist Additional comments: no teeth - Neck Exam Neck exam: Positive for: Full Rom, Normal Inspection - Respiratory Exam Respiratory Exam: NORMAL BREATHING PATTERN. absent: Respiratory Distress - GI/Abdominal Exam GI & Abdominal Exam: Soft. absent: Distended, Guarding, Tenderness - Neurological Exam Neurological exam: Alert Additional comments: patient is oriented to self - Psychiatric Exam Additional comments: Alzheimers dementia - Skin Additional comments: 7cm x 4cm x 5 cm deep Stage IV sacral decubitus ulcer present with dark eschar, Bone is present in base of the ulcer, malodorous discharge present on exam, bilateral hip replacement scars noted, no other scars noted on exam Results - Vital Signs Recent Vital Signs: Last Vital Signs Temp 98.4 F 03/13/18 15:20 Pulse 90 03/13/18 15:20 Resp 18 03/13/18 15:20 BP 111/69 03/13/18 15:20 Pulse Ox 96 03/13/18 15:20 - Labs Result Diagrams: 03/13/18 13:00 03/13/18 13:00 Assessment & Plan - Assessment and Plan (Free Text) Assessment: 87 yr old female with stage IV chronic Sacral Decubitus ulcer Plan: Pt to be admitted for further evaluation will likely need irrigation and debridement in OR Will have patient on air mattress, heel protectors, turn q2 to avoid further ulceration Will begin IV fluids, NPO after midnight, soft heart healthy diet otherwise Will F/u wound culture and labs Continue Rocephin and Vancomycin Continue Home meds Further Recommendations per Dr. Brunner - Date & Time Date: 03/13/18 Time: 16:32
[2018-03-13] MEDS: Collagenase 250 Units/gm Ointment(30 gm) TOP SCH (17:42)
[2018-03-13 18:26] LABS: VENOUS BLOOD GAS BASE EXCESS 2.8 mmol/L (0.0-2.0); VENOUS BLOOD GAS PO2 34 mm/Hg (30-55); VENOUS BLOOD PH 7.39 (7.32-7.43)
[2018-03-13] MEDS ORDERED: Potassium Chloride 40 mEq/30 ml LIQ UD PO ONE (18:50)
--- NOTE | 2018-03-13 20:01 | CP.PCM.CON ---
History of Present Illness - History of Present Illness History of Present Illness: Infectious Disease Consultation: March 13, 2018 87 yo AA female brought in from home with a large Stage IV sacral decubiti ulceration. There are sinus tracts present and a large eschar. Malodorous discharge from the wound. Sacral bone clearly visible in center of wound. Patient herself is unable to provide any information due to her numerous medical conditions. The patient is awake but with difficulty speaking especially with her poor dentition. Patient with previous admission in January 2018. Previous debridement. PMHx: Alzheimer's Disease, Dementia, HLD, Severe Degenerative Arthritis, Wheelchair bound. PSHx: Sacral Decubiti, Bilateral Hip Replacement. Allergies: NKDA Social Hx: No EtOH or illicit drug use Ex-smoker Active Medications Acetaminophen (Tylenol 325mg Tab) 650 mg PO Q6H PRN PRN Reason: Temperature Atorvastatin Calcium (Lipitor) 10 mg PO DIN CHRISTINA Collagenase (Santyl) 1 gm TOP BID CHRISTINA Last Admin: 03/13/18 17:42 Dose: 1 applic Donepezil HCl (Aricept) 10 mg PO HS CHRISTINA Vancomycin HCl (Vancomycin 1gm) 1 gm in 250 mls @ 167 mls/hr IVPB Q12H CHRISTINA PRN Reason: Protocol Stop: 03/22/18 18:46 Meropenem (Merrem Iv 1 Gm Premix) 50 mls @ 100 mls/hr IVPB Q8 CHRISTINA PRN Reason: Protocol Stop: 03/22/18 18:46 Mirtazapine (Remeron) 15 mg PO HS CHRISTINA Ondansetron HCl (Zofran Inj) 4 mg IVP Q6H PRN PRN Reason: Nausea/Vomiting Family Hx: Unable to Obtain ROS: Unable to Obtain Past Patient History - Infectious Disease Hx of Infectious Diseases: None - Tetanus Immunizations Tetanus Immunization: Unknown - Past Medical History & Family History Past Medical History?: Yes - Past Social History Smoking Status: Former Smoker Chewing Tobacco Use: No Cigar Use: No Alcohol: None Drugs: Denies Home Situation {Lives}: With Family - CARDIAC Hx Hypercholesterolemia: Yes - PULMONARY Hx Respiratory Disorders: No - NEUROLOGICAL Hx Neurological Disorder: Yes Hx Alzheimer's Disease: Yes Hx Dementia: Yes - HEENT Hx HEENT Problems: No (WEARS RX GLASSES) Hx Difficulty Chewing: Yes (patient has no teeth and does not wear dentures) - RENAL Hx Chronic Kidney Disease: No - ENDOCRINE/METABOLIC Hx Endocrine Disorders: No - HEMATOLOGICAL/ONCOLOGICAL Hx Blood Disorders: No - INTEGUMENTARY Hx Dermatological Problems: Yes (BILATERAL KNEE EDEMA +3) Other/Comment: left buttock skin tear, 0.4cm x 3cm wound bed red,b/l buttock stage 2 pressure ulcer wound bed red 2cm x 5cm unapproximated - MUSCULOSKELETAL/RHEUMATOLOGICAL Hx Falls: Yes (past) - GASTROINTESTINAL Hx Gastrointestinal Disorders: No - GENITOURINARY/GYNECOLOGICAL Hx Genitourinary Disorders: Yes Hx Incontinence: Yes - PSYCHIATRIC Hx Psychophysiologic Disorder: No Hx Anxiety: No Hx Bipolar Disorder: No Hx Depression: No Hx Emotional Abuse: No Hx Hallucinations: No Hx Panic Symptoms: No Hx Post Traumatic Stress Disorder: No Hx Psychosis: No Hx Physical Abuse: No Hx Schizophrenia: No Hx Sexual Abuse: No Hx Substance Use: No - SURGICAL HISTORY Hx Orthopedic Surgery: Yes (BILAT HIP replacements) Other/Comment: fluid drained from knee - ANESTHESIA Hx Anesthesia: Yes Hx Anesthesia Reactions: No Hx Malignant Hyperthermia: No Meds Allergies/Adverse Reactions: Allergies Allergy/AdvReac Type Severity Reaction Status Date / Time No Known Allergies Allergy Verified 03/13/18 10:33 - Medications Medications: Current Medications Acetaminophen (Tylenol 325mg Tab) 650 mg PO Q6H PRN PRN Reason: Temperature Atorvastatin Calcium (Lipitor) 10 mg PO DIN CHRISTINA Collagenase (Santyl) 1 gm TOP BID CHRISTINA Last Admin: 03/13/18 17:42 Dose: 1 applic Donepezil HCl (Aricept) 10 mg PO HS CHRISTINA Vancomycin HCl (Vancomycin 1gm) 1 gm in 250 mls @ 167 mls/hr IVPB Q12H CHRISTINA PRN Reason: Protocol Stop: 03/22/18 18:46 Meropenem (Merrem Iv 1 Gm Premix) 50 mls @ 100 mls/hr IVPB Q8 CHRISTINA PRN Reason: Protocol Stop: 03/22/18 18:46 Mirtazapine (Remeron) 15 mg PO HS CHRISTINA Ondansetron HCl (Zofran Inj) 4 mg IVP Q6H PRN PRN Reason: Nausea/Vomiting Physical Exam - Constitutional Appears: No Acute Distress, Chronically Ill - Head Exam Head Exam: ATRAUMATIC, NORMOCEPHALIC Additional comments: full dentures. - Eye Exam Eye Exam: EOMI, PERRL Pupil Exam: NORMAL ACCOMODATION, PERRL - ENT Exam ENT Exam: Mucous Membranes Moist, Normal External Ear Exam, TM's Normal Bilaterally - Neck Exam Neck exam: Positive for: Full Rom, Normal Inspection - Respiratory Exam Respiratory Exam: Clear to Auscultation Bilateral, NORMAL BREATHING PATTERN. absent: Rales, Rhonchi, Wheezes - Cardiovascular Exam Cardiovascular Exam: REGULAR RHYTHM, RRR, +S1, +S2 - GI/Abdominal Exam GI & Abdominal Exam: Normal Bowel Sounds, Soft. absent: Distended, Tenderness - Extremities Exam Additional comments: thin, weak. - Neurological Exam Neurological exam: Alert, CN II-XII Intact Additional comments: AAO x 1. Orientated to self only. - Psychiatric Exam Psychiatric exam: Normal Affect, Normal Mood - Skin Additional comments: 7cm x 4cm x 5 cm deep Stage IV sacral decubitus ulcer present with dark eschar, Bone is present in base of the ulcer, malodorous discharge present on exam, bilateral hip replacement scars noted, no other scars noted on exam Results - Vital Signs Recent Vital Signs: Last Vital Signs Temp 97.4 F L 03/13/18 18:32 Pulse 93 H 03/13/18 18:32 Resp 18 03/13/18 18:32 BP 121/77 03/13/18 18:32 Pulse Ox 94 L 03/13/18 18:32 - Labs Result Diagrams: 03/13/18 13:00 03/13/18 13:00 Labs: Laboratory Results - last 24 hr 03/13/18 18:22 pO2 34 VBG pH 7.39 VBG pCO2 47.0 VBG HCO3 28.5 H VBG Total CO2 29.9 H VBG O2 Sat (Calc) 73.2 H VBG Base Excess 2.8 H VBG Potassium 3.4 L Sodium 141.0 Chloride 107.0 Glucose 113 H Lactate 1.9 FiO2 21.0 Venous Blood Potassium 3.4 L Assessment & Plan - Assessment and Plan (Free Text) Assessment: 87 yo AA female with large stage IV sacral decubiti ulceration with malodorous discharge. Noted the patient started on Meropenem and IV Vancomycin for antibiotic care. Will deescalate as cultures return. Local wound care. The patient is NPO for possible debridement tomorrow. Previous cultures have shown ESBL - E. Coli and Enterococcus growth in the sacral decubiti. Patient has leukocytosis of 14.9. She has been afebrile. Supportive care. Thank you for allowing me to participate in the care of the patient, we will follow with you.
[2018-03-13] MEDS: Meropenem IV 1 gm in NS 50 ML IVPB SCH ×2 (20:41→23:00)
[2018-03-13] MEDS: Vancomycin 1gm in NS 250ml 1 GM/250 ML BAG IVPB SCH (20:41)
--- NOTE | 2018-03-13 21:48 | HP ---
DATE OF EXAM: 03/13/2018 HISTORY OF PRESENT ILLNESS: This 87-year-old female is admitted to [facility]. The family called that she has a worsening sacral decubitus ulcer that is foul smelling and draining a purulent discharge. The patient is followed at home by visiting nurse association as well as homemaker services and family stated that the ulcer worsened in the past several days. PAST MEDICAL HISTORY: Significant for advanced Alzheimer dementia, degenerative arthritis, sacral ulcer, history of degenerative arthritis, poor visual acuity for which she wears glasses, and history of bilateral hip replacements and bilateral knee replacements in the distant past. Family denies any knowledge of fever, chills, chest pain, or shortness of breath but states the patient was moaning when they attempted to clean her sacral decubitus. ALLERGIES: ON QUESTIONING THE FAMILY, THE PATIENT HAS NO KNOWN ALLERGIES TO MEDICATION. OUTPATIENT MEDICATIONS: Include Zocor 20 mg p.o. at bedtime, Remeron 15 mg p.o. at bedtime, Aricept 10 mg p.o. at bedtime, and she did complete a course of Keflex 250 mg p.o. every 6 hours and Santyl was being applied topically with a dry sterile dressing b.i.d. REVIEW OF SYSTEMS: CONSTITUTIONAL: No reports of fever or chills. HEAD: No recent seizure or head trauma. EYES: No change in visual acuity. EARS: No hearing loss. THROAT: No swallowing difficulty. NECK: No stiffness. CARDIAC: No reports of chest pain or palpitation. PULMONARY: No cough. No hemoptysis. GASTROINTESTINAL: No hematemesis. No melena. GENITOURINARY: No dysuria. SKIN: Sacral ulcer that has a purulent discharge noted. VASCULAR: No reports of claudication. PSYCHOLOGICAL: Alzheimer's and agitation. NEUROLOGICAL: The patient is virtually nonambulatory. LABORATORY DATA: At present,all labs are pending. Requested labs include comprehensive metabolic panel, CBC, PT, PTT, and blood culture. I have told the emergency room staff to obtain a wound culture as well. The plan will be to admit this patient. She will need a wound care consultation, on a specialty mattress. I will consult Dr. Sarthak Monroe from Infectious Disease regarding antibiotic management and will also consult Surgery for debridement of her sacral ulcer. Pending her progress, additional workup and treatment will be entertained. All of the above was reviewed at the bedside with the patient, family, nursing, and emergency room physicians. All questions were answered. Approximately 45 minutes was spent in the care, management, review of labs, orders, and awaiting of reports on this patient today. Miranda Meraz MD MTDVj
[2018-03-13 23:00] VITALS: BMI 24.7
[2018-03-13] MEDS ORDERED: Pneumococcal 23-Valent Vaccine IM ONE (23:01)
--- NOTE | 2018-03-14 05:50 | CON ---
DATE: 03/13/2018 LOCATION: Patient is in room 367, bed 1. CHIEF COMPLAINT: Decubitus ulcer with infection times several days. HISTORY OF PRESENT ILLNESS: This is an 87-year-old female with history of Alzheimer's type dementia, bedridden, hyperlipidemia, history of bilateral hip and sacral wound surgery in the past, who is admitted from home. The patient is bedridden and so the sacral wound gets progressively worse. There has been no fevers reported. No chills. She does not communicate. Information is gathered from the nurse caring for the patient. No abdominal pain, diarrhea or constipation. No bright red blood per rectum, no melena reported as per nursing. REVIEW OF SYSTEMS: A 12-point review of systems is performed. PAST MEDICAL HISTORY: Significant for Alzheimer's dementia, hyperlipidemia, bedridden, and right heel wound. PAST SURGICAL HISTORY: Significant for bilateral hip and sacral wound surgery and debridement. ALLERGIES: THE PATIENT HAS NO KNOWN ALLERGIES. MEDICATIONS: Reveal the patient to be on Santyl, cephalexin, Zocor, Remeron, and Aricept. PHYSICAL EXAMINATION: GENERAL: On exam, she is in bed, appearing chronically ill. VITAL SIGNS: Temperature of 98, blood pressure is 115/80, respiratory rate of 18, heart rate of 93. HEENT: Unremarkable. NECK: Supple. LUNGS: Have decreased breath sounds. HEART: Normal S1, S2. ABDOMEN: Soft, nontender. No organomegaly. No rebound, no guarding. No masses. SACRAL: Examination reveals a stage IV decubitus ulcer with erythema and discharge and bone exposure. LABORATORY DATA: Reveals the patient has a white count of 14,900, hemoglobin of 12, platelets of 262, 81% granulocytosis. Coagulation is noted. Chemistries reveals a BUN of 10, creatinine of 0.4. consultation is reviewed. The patient's emergency room chart by is reviewed. The patient's EKG is reviewed with a QTC of 459. ASSESSMENT AND PLAN: This is an 87-year-old female with Alzheimer's dementia, hyperlipidemia, bedridden with leukocytosis of 14,900, tachycardia, heart rate of 93, oxygen saturation of 94% with a stage IV decubitus ulcer with bone exposure. Severe sepsis with stage IV decubitus ulcer, cellulitis. Must rule out underlying osteomyelitis. We will order a sed rate, C-reactive protein. Start the patient on vancomycin, meropenem. Wound cultures, blood cultures and urine cultures. Overall prognosis is quite poor for this patient who appears end stage. Mir Villavicencio MD
[2018-03-14] MEDS: Meropenem IV 1 gm in NS 50 ML IVPB SCH ×3 (05:55→22:00)
[2018-03-14] MEDS: Vancomycin 1gm in NS 250ml 1 GM/250 ML BAG IVPB SCH ×2 (05:56→18:51)
--- NOTE | 2018-03-14 09:26 | CP.PCM.PN ---
Subjective - Date & Time of Evaluation Date of Evaluation: 03/14/18 Time of Evaluation: 09:24 - Subjective Subjective: General Surgery Consult note for Dr. Brunner No acute overnight events per nursing. Patient seen and examined at bedside this AM. Patient was arousable but poorly communicative. Patient has difficulty describing symptoms due to mental status. Objective - Vital Signs/Intake and Output Vital Signs (last 24 hours): Temp Pulse Resp BP Pulse Ox 98 F 69 18 103/60 96 03/14/18 08:39 03/14/18 08:39 03/14/18 08:39 03/14/18 08:39 03/14/18 08:39 Intake and Output: 03/14/18 03/14/18 06:59 18:59 Intake Total 120 Output Total 0 Balance 120 - Medications Medications: Current Medications Acetaminophen (Tylenol 325mg Tab) 650 mg PO Q6H PRN PRN Reason: Temperature Atorvastatin Calcium (Lipitor) 10 mg PO DIN [facility] Collagenase (Santyl) 1 gm TOP BID [facility] Last Admin: 03/13/18 17:42 Dose: 1 applic Donepezil HCl (Aricept) 10 mg PO HS [facility] Last Admin: 03/13/18 22:56 Dose: 10 mg Vancomycin HCl (Vancomycin 1gm) 1 gm in 250 mls @ 167 mls/hr IVPB Q12H [facility] PRN Reason: Protocol Stop: 03/22/18 18:46 Last Admin: 03/14/18 05:56 Dose: 167 mls/hr Meropenem (Merrem Iv 1 Gm Premix) 50 mls @ 100 mls/hr IVPB Q8 [facility] PRN Reason: Protocol Stop: 03/22/18 18:46 Last Admin: 03/14/18 05:55 Dose: 100 mls/hr Mirtazapine (Remeron) 15 mg PO HS [facility] Last Admin: 03/13/18 22:56 Dose: 15 mg Ondansetron HCl (Zofran Inj) 4 mg IVP Q6H PRN PRN Reason: Nausea/Vomiting - Labs Labs: PT 12.3 SECONDS (9.4-12.5) 03/13/18 13:00 INR 1.07 (0.93-1.08) 03/13/18 13:00 APTT 29.7 Seconds (25.1-36.5) 03/13/18 13:00 - Constitutional Appears: No Acute Distress, Confused - Head Exam Head Exam: ATRAUMATIC - ENT Exam ENT Exam: Mucous Membranes Moist - Respiratory Exam Respiratory Exam: NORMAL BREATHING PATTERN - GI/Abdominal Exam GI & Abdominal Exam: Soft. absent: Guarding, Rigid, Tenderness - Extremities Exam Additional comments: well healing 2 cm x 2 cm dark eschar on medial right heel - Skin Additional comments: Large 7x5 cm stage 4 tunneling sacral decubitus ulcer with a large black eschar present. wound is draining and malodorous. No other decubitus ulcers on exam. Assessment and Plan - Assessment and Plan (Free Text) Assessment: 87 yr old female presenting with a chronic stage 4 sacral decubitus ulcer with tunneling to the sacrum and malodorous discharge. Plan: Elizabeth louis Vancomycin addition noted Will follow results of Urine Blood and wound cultures Bedside debridement planned for today wet to wet dressings with Dakins soaked packing for dressings
[2018-03-14 09:36] LABS: ALB/GLOB RATIO 0.8 (1.1-1.8); ALBUMIN 2.6 g/dL (3.0-4.8); ALT/SGPT 33 U/L (7-56); AST/SGOT 24 U/L (14-36); BLOOD UREA NITROGEN 8 mg/dL (7-21); CALCIUM 8.5 mg/dL (8.4-10.5); GFR AFRICAN-AMERICAN > 60; GFR NON-AFRICAN AMERICAN > 60
[2018-03-14] MEDS: Collagenase 250 Units/gm Ointment(30 gm) TOP SCH ×2 (09:43→18:52)
[2018-03-14 11:50] LABS: BASO # 0.04 K/mm3 (0.0-2.0); BASO % 0.2 % (0.0-3.0); EOS # 0.5 (0.0-0.7); EOS % 2.9 % (1.5-5.0); GRAN # 15.7 (1.4-6.5); GRAN % 85.9 % (50.0-68.0); HEMOGLOBIN 12.4 g/dL (12.0-16.0); LYMPH % 5.5 % (22.0-35.0); MEAN CELL VOLUME 88.2 fl (80.0-105.0); MEAN CORPUSCULAR HEMOGLOBIN 28.6 pg (25.0-35.0); MEAN CORPUSCULAR HGB CONC 32.4 g/dl (31.0-37.0); MEAN PLATELET VOLUME 9.3 fl (7.0-11.0); MONO % 5.5 % (1.0-6.0); RBC 4.34 10^6/uL (3.5-6.1); RED CELL DISTRIBUTION WIDTH 18.9 % (11.5-14.5); WHITE BLOOD COUNT 18.3 10^3/ul (4.5-11.0)
[2018-03-14] MEDS ORDERED: Lidocaine 2% Jelly (30 ml) TOP ONE (12:40)
--- NOTE | 2018-03-14 13:00 | PN ---
DATE: 03/14/2018 SUBJECTIVE: This 87-year-old female was examined at her bedside and this case was reviewed in detail with nurse, Rosalinda Correa, registered nurse. The patient was admitted with a 7 x 4 x 5 cm stage IV decubitus ulcer that has failed outpatient therapy at home. The patient is being readied for surgical debridement of her sacral wound and wound and blood cultures are pending at present. The patient is lying in bed, alert, but confused in the setting of chronic Alzheimer's dementia. There have been no reports of fever, chills, chest pain or shortness of breath. PHYSICAL EXAMINATION: VITAL SIGNS: Physical exam shows a temperature of 98, respirations 18, pulse 69 and blood pressure 103/60 with a pulse ox of 96% on room air. HEENT: Head is normocephalic, atraumatic. Eyes: No icterus. Ears: Clear. Throat: Noninjected. NECK: Supple. HEART: Regular S1, S2. LUNGS: Clear. ABDOMEN: Obese, nontender. No palpable organomegaly. EXTREMITIES: No clubbing, no cyanosis, no edema. SKIN: No rash. Sacral area 7 x 4 x 5 cm stage IV decubitus ulcer with mild purulent discharge on her dressing. VASCULAR: Legs warm to touch. PSYCHOLOGICAL: Alert, but confused. NEURO: Grossly intact. LABORATORY DATA: White count 14,900, hemoglobin 12.7, hematocrit 39.1, platelets 262,000. PT/INR 1.07, PTT 29.7. ESR 42. Sodium 144, K 3.5, chloride 110, bicarb 25, BUN 8, creatinine 0.4, random blood sugar 104, calcium normal 8.5, phosphorous 2.5, magnesium 2.2, bilirubin 0.5, AST 24, ALT 33 and alk phos 86. EKG was reviewed. It showed normal sinus rhythm with nonspecific ST-T wave changes. IMPRESSION: An 87-year-old female with a stage IV decubitus ulcer and comorbidities of chronic Alzheimer's dementia, hyperlipidemia, degenerative arthritis, status post bilateral hip replacements in the distant past and bilateral knee replacements with chronic degenerative arthritis. PLAN: The plan is discussed with nursing, family and co-consultants will be to continue Aricept 10 mg p.o. at bedtime, Lipitor 10 mg p.o. at dinner time, meropenem 1 g IV every 8 hours, vancomycin 1 g IV every 12 hours, Remeron 15 mg p.o. at bedtime, Santyl to her sacral wound with a dry sterile dressing b.i.d., Tylenol 650 by mouth every 6 hours p.r.n. pain or temperature greater than 101 and Zofran 4 mg IV every 6 hours p.r.n. nausea and vomiting. The patient will have a repeat comprehensive metabolic panel and CBC in the a.m. Blood and wound cultures are pending. She is ordered to have sacral wound care. She will continue on heart-healthy diet, but remains n.p.o. now for OR preparation. She is wearing heel protectors. She is ordered to have an air mattress. She is being repositioned every hour to prevent further skin breakdown and is ordered to have bedside physical and occupational therapy. I will order a potassium K rider and all of the above was discussed in detail with nursing. Greater than 35 minutes was spent in the care and management, review of labs, EKGs and orders for this patient today. All questions were answered. Miranda Meraz MD MTDVj
[2018-03-14] MEDS ORDERED: Dakin's Topical 0.5%-Full Strength (480 ml) TOP ONE (15:28)
[2018-03-14] MEDS ORDERED: Morphine 2 mg/ml ISec IVP ONE (15:35)
[2018-03-14] MEDS ORDERED: Potassium Chloride 40 mEq/30 ml LIQ UD PO ONE (15:39)
--- NOTE | 2018-03-14 16:08 | PCM.SURG1 ---
Surgeon's Initial Post Op Note - Surgeon's Notes Surgeon: Dr. Brunner Production Underwriter: Dr. Werner, Dr. Sofia Type of Anesthesia: None Pre-Operative Diagnosis: Sacral Decubitus Ulcer Operative Findings: Informed consent was obtained from patient's son. Patient was prepped in a sterile manner. Morphine was given prior to the procedure for painb control/comfort. Sharp debridement of the 7 cm x 4 cm sacral decubitus was obtained using forceps, 11 blade scalpel and scissors. Large 2cm x 2cm black eschar was removed from the superior portion of the wound. Wound was manually debrided, exudate noted in wound bed. Wound was packed with Dakins 0.5 % soaked kerlex covered with 4x4 gauze pads. Patient tolerated procedure well. Post-Operative Diagnosis: same Operation Performed: bedside debridement of sacral decubitus ulcer Specimen/Specimens Removed: none Estimated Blood Loss: EBL {In ML}: 2 Blood Products Given: N/A Drains Used: No Drains Post-Op Condition: Good Date of Surgery/Procedure: 03/14/18 Time of Surgery/Procedure: 15:30
--- NOTE | 2018-03-14 19:10 | CP.PCM.PN ---
Subjective - Date & Time of Evaluation Date of Evaluation: 03/14/18 Time of Evaluation: 16:30 - Subjective Subjective: Infectious Disease Follow Up: March 14, 2018 87 yo AA female brought in from home with a large Stage IV sacral decubiti ulceration. There are sinus tracts present and a large eschar. Malodorous discharge from the wound. Sacral bone clearly visible in center of wound. Patient herself is unable to provide any information due to her numerous medical conditions. The patient is awake but with difficulty speaking especially with her poor dentition. Patient with previous admission in January 2018. Previous debridement. Taken to OR today for debridement with surgery. Objective - Vital Signs/Intake and Output Vital Signs (last 24 hours): Temp Pulse Resp BP Pulse Ox 98.5 F 57 L 19 108/62 97 03/14/18 17:54 03/14/18 17:54 03/14/18 17:54 03/14/18 17:54 03/14/18 17:54 Intake and Output: 03/14/18 03/15/18 18:59 06:59 Intake Total 120 Output Total 0 Balance 120 - Medications Medications: Current Medications Acetaminophen (Tylenol 325mg Tab) 650 mg PO Q6H PRN PRN Reason: Temperature Atorvastatin Calcium (Lipitor) 10 mg PO DIN [facility] Last Admin: 03/14/18 18:52 Dose: 10 mg Collagenase (Santyl) 1 gm TOP BID [facility] Last Admin: 03/14/18 18:52 Dose: 1 applic Donepezil HCl (Aricept) 10 mg PO HS [facility] Last Admin: 03/13/18 22:56 Dose: 10 mg Vancomycin HCl (Vancomycin 1gm) 1 gm in 250 mls @ 167 mls/hr IVPB Q12H [facility] PRN Reason: Protocol Stop: 03/22/18 18:46 Last Admin: 03/14/18 18:51 Dose: 167 mls/hr Meropenem (Merrem Iv 1 Gm Premix) 50 mls @ 100 mls/hr IVPB Q8 [facility] PRN Reason: Protocol Stop: 03/22/18 18:46 Last Admin: 03/14/18 15:35 Dose: 100 mls/hr Mirtazapine (Remeron) 15 mg PO HS [facility] Last Admin: 03/13/18 22:56 Dose: 15 mg Ondansetron HCl (Zofran Inj) 4 mg IVP Q6H PRN PRN Reason: Nausea/Vomiting - Labs Labs: 03/14/18 11:30 03/14/18 06:30 PT 12.3 SECONDS (9.4-12.5) 03/13/18 13:00 INR 1.07 (0.93-1.08) 03/13/18 13:00 APTT 29.7 Seconds (25.1-36.5) 03/13/18 13:00 - Constitutional Appears: No Acute Distress, Chronically Ill - Head Exam Head Exam: ATRAUMATIC, NORMOCEPHALIC Additional comments: full dentures. - Eye Exam Eye Exam: EOMI, PERRL Pupil Exam: NORMAL ACCOMODATION, PERRL - ENT Exam ENT Exam: Mucous Membranes Moist, Normal External Ear Exam, TM's Normal Bilaterally - Neck Exam Neck Exam: Full ROM, Normal Inspection - Respiratory Exam Respiratory Exam: Clear to Ausculation Bilateral, NORMAL BREATHING PATTERN. absent: Rales, Rhonchi, Wheezes - Cardiovascular Exam Cardiovascular Exam: REGULAR RHYTHM, RRR, +S1, +S2 - GI/Abdominal Exam GI & Abdominal Exam: Soft, Normal Bowel Sounds. absent: Distended, Tenderness - Extremities Exam Additional comments: thin, weak. - Neurological Exam Neurological Exam: Alert, Awake, CN II-XII Intact Additional comments: AAO x 1. Orientated to self only. - Psychiatric Exam Psychiatric exam: Normal Affect, Normal Mood - Skin Additional comments: 7cm x 4cm x 5 cm deep Stage IV sacral decubitus ulcer present with dark eschar, Bone is present in base of the ulcer, malodorous discharge present on exam, bilateral hip replacement scars noted, no other scars noted on exam. Taken to OR for debridement of the sacral decubiti ulcer today. Assessment and Plan - Assessment and Plan (Free Text) Assessment: 87 yo AA female with large stage IV sacral decubiti ulceration with malodorous discharge. Noted the patient started on Meropenem and IV Vancomycin for antibiotic care. Will deescalate as cultures return. Local wound care. The patient is NPO for possible debridement tomorrow. Previous cultures have shown ESBL - E. Coli and Enterococcus growth in the sacral decubiti. Patient has leukocytosis of 18.3. She has been afebrile. Supportive care. Thank you for allowing me to participate in the care of the patient, we will follow with you.
[2018-03-15] MEDS: Meropenem IV 1 gm in NS 50 ML IVPB SCH ×2 (05:39→14:29)
[2018-03-15] MEDS: Vancomycin 1gm in NS 250ml 1 GM/250 ML BAG IVPB SCH (05:53)
[2018-03-15 06:48] LABS: BASO # 0.03 K/mm3 (0.0-2.0); BASO % 0.2 % (0.0-3.0); EOS # 0.7 (0.0-0.7); EOS % 4.3 % (1.5-5.0); GRAN # 11.85 (1.4-6.5); GRAN % 74.9 % (50.0-68.0); HEMOGLOBIN 12.7 g/dL (12.0-16.0); LYMPH % 12.6 % (22.0-35.0); MEAN CELL VOLUME 89.2 fl (80.0-105.0); MEAN CORPUSCULAR HEMOGLOBIN 28.5 pg (25.0-35.0); MEAN CORPUSCULAR HGB CONC 31.9 g/dl (31.0-37.0); MEAN PLATELET VOLUME 9.8 fl (7.0-11.0); MONO # 1.3 (0.1-0.6); RBC 4.46 10^6/uL (3.5-6.1); RED CELL DISTRIBUTION WIDTH 19.4 % (11.5-14.5); WHITE BLOOD COUNT 15.8 10^3/ul (4.5-11.0)
[2018-03-15 07:42] LABS: ALB/GLOB RATIO 0.8 (1.1-1.8); ALBUMIN 2.8 g/dL (3.0-4.8); ALT/SGPT 23 U/L (7-56); AST/SGOT 23 U/L (14-36); BLOOD UREA NITROGEN 9 mg/dL (7-21); CALCIUM 8.9 mg/dL (8.4-10.5); GFR AFRICAN-AMERICAN > 60; GFR NON-AFRICAN AMERICAN > 60
[2018-03-15] MEDS ORDERED: Potassium Chloride 40 mEq/30 ml LIQ UD PO ONE (09:17)
--- NOTE | 2018-03-15 09:22 | CP.PCM.PN ---
Subjective - Date & Time of Evaluation Date of Evaluation: 03/15/18 Time of Evaluation: 09:19 - Subjective Subjective: Surgery: Dr. Brunner Pt seen and examined. No acute overnight events. Pt denies any complaints at this time, however she has baseline dementia and is unable to provide much information. No fevers recorded overnight. Objective - Vital Signs/Intake and Output Vital Signs (last 24 hours): Temp Pulse Resp BP Pulse Ox 97.8 F 51 L 19 98/63 L 97 03/15/18 06:00 03/15/18 06:00 03/15/18 06:00 03/15/18 06:00 03/14/18 17:54 Intake and Output: 03/15/18 03/15/18 06:59 18:59 Intake Total 120 Balance 120 - Medications Medications: Current Medications Acetaminophen (Tylenol 325mg Tab) 650 mg PO Q6H PRN PRN Reason: Temperature Atorvastatin Calcium (Lipitor) 10 mg PO DIN [facility] Last Admin: 03/14/18 18:52 Dose: 10 mg Collagenase (Santyl) 1 gm TOP BID [facility] Last Admin: 03/14/18 18:52 Dose: 1 applic Donepezil HCl (Aricept) 10 mg PO HS [facility] Last Admin: 03/14/18 22:00 Dose: 10 mg Vancomycin HCl (Vancomycin 1gm) 1 gm in 250 mls @ 167 mls/hr IVPB Q12H [facility] PRN Reason: Protocol Stop: 03/22/18 18:46 Last Admin: 03/15/18 05:53 Dose: 167 mls/hr Meropenem (Merrem Iv 1 Gm Premix) 50 mls @ 100 mls/hr IVPB Q8 [facility] PRN Reason: Protocol Stop: 03/22/18 18:46 Last Admin: 03/15/18 05:39 Dose: 100 mls/hr Mirtazapine (Remeron) 15 mg PO HS [facility] Last Admin: 03/14/18 22:00 Dose: 15 mg Ondansetron HCl (Zofran Inj) 4 mg IVP Q6H PRN PRN Reason: Nausea/Vomiting Potassium Chloride (Potassium Chloride Oral Soln) 40 meq PO ONCE ONE Stop: 03/15/18 09:18 - Labs Labs: 03/15/18 06:00 03/15/18 06:00 PT 12.3 SECONDS (9.4-12.5) 03/13/18 13:00 INR 1.07 (0.93-1.08) 03/13/18 13:00 APTT 29.7 Seconds (25.1-36.5) 03/13/18 13:00 - Constitutional Appears: Well, No Acute Distress - Head Exam Head Exam: ATRAUMATIC, NORMOCEPHALIC - ENT Exam ENT Exam: Mucous Membranes Moist - Respiratory Exam Respiratory Exam: NORMAL BREATHING PATTERN - Cardiovascular Exam Cardiovascular Exam: RRR - GI/Abdominal Exam GI & Abdominal Exam: Soft. absent: Tenderness - Back Exam Additional comments: sacral wound with dakins soaked kerlex in place - Neurological Exam Neurological Exam: Alert, Awake, Oriented x3 - Skin Skin Exam: Dry, Warm Assessment and Plan - Assessment and Plan (Free Text) Assessment: 87F with sacral decubitus ulcer s/p bedside debridement Plan: - continue wet dressings soaked in Dakins - will monitor wound for further debridement if needed - continue IV ABX - d/w Dr. Kannan Werner, PGY-3
[2018-03-15] MEDS: Collagenase 250 Units/gm Ointment(30 gm) TOP SCH ×2 (10:00→17:29)
[2018-03-15] MEDS ORDERED: TraMADol/Apap 37.5/325 mg Tab PO PRN (12:41)
--- NOTE | 2018-03-15 15:31 | CP.PCM.PN ---
Subjective - Date & Time of Evaluation Date of Evaluation: 03/15/18 Time of Evaluation: 14:30 - Subjective Subjective: Infectious Disease Follow Up: March 15, 2018 87 yo AA female brought in from home with a large Stage IV sacral decubiti ulceration. There are sinus tracts present and a large eschar. Malodorous discharge from the wound. Sacral bone clearly visible in center of wound. Patient herself is unable to provide any information due to her numerous medical conditions. The patient is awake but with difficulty speaking especially with her poor dentition. Patient with previous admission in January 2018. Previous debridement. Taken to OR for debridement with surgery yesterday. Patient appears comfortable. Objective - Vital Signs/Intake and Output Vital Signs (last 24 hours): Temp Pulse Resp BP Pulse Ox 97.8 F 51 L 19 98/63 L 97 03/15/18 06:00 03/15/18 06:00 03/15/18 06:00 03/15/18 06:00 03/14/18 17:54 Intake and Output: 03/15/18 03/15/18 06:59 18:59 Intake Total 120 150 Balance 120 150 - Medications Medications: Current Medications Acetaminophen (Tylenol 325mg Tab) 650 mg PO Q6H PRN PRN Reason: Temperature Atorvastatin Calcium (Lipitor) 10 mg PO DIN [facility] Last Admin: 03/14/18 18:52 Dose: 10 mg Collagenase (Santyl) 1 gm TOP BID [facility] Last Admin: 03/15/18 10:00 Dose: Not Given Donepezil HCl (Aricept) 10 mg PO HS [facility] Last Admin: 03/14/18 22:00 Dose: 10 mg Vancomycin HCl (Vancomycin 1gm) 1 gm in 250 mls @ 167 mls/hr IVPB Q12H [facility] PRN Reason: Protocol Stop: 03/22/18 18:46 Last Admin: 03/15/18 05:53 Dose: 167 mls/hr Meropenem (Merrem Iv 1 Gm Premix) 50 mls @ 100 mls/hr IVPB Q8 [facility] PRN Reason: Protocol Stop: 03/22/18 18:46 Last Admin: 03/15/18 14:29 Dose: 100 mls/hr Mirtazapine (Remeron) 15 mg PO HS [facility] Last Admin: 03/14/18 22:00 Dose: 15 mg Ondansetron HCl (Zofran Inj) 4 mg IVP Q6H PRN PRN Reason: Nausea/Vomiting Tramadol/Acetaminophen (Ultracet 37.5/325 Mg) 1 tab PO Q6H PRN PRN Reason: Pain, moderate (4-7) - Labs Labs: 03/15/18 06:00 03/15/18 06:00 PT 12.3 SECONDS (9.4-12.5) 03/13/18 13:00 INR 1.07 (0.93-1.08) 03/13/18 13:00 APTT 29.7 Seconds (25.1-36.5) 03/13/18 13:00 - Constitutional Appears: No Acute Distress, Chronically Ill - Head Exam Head Exam: ATRAUMATIC, NORMOCEPHALIC Additional comments: Full Dentures. - Eye Exam Eye Exam: EOMI, PERRL Pupil Exam: NORMAL ACCOMODATION, PERRL - ENT Exam ENT Exam: Mucous Membranes Moist, Normal External Ear Exam, TM's Normal Bilaterally - Neck Exam Neck Exam: Full ROM, Normal Inspection - Respiratory Exam Respiratory Exam: Clear to Ausculation Bilateral, NORMAL BREATHING PATTERN. absent: Rales, Rhonchi, Wheezes - Cardiovascular Exam Cardiovascular Exam: REGULAR RHYTHM, RRR, +S1, +S2 - GI/Abdominal Exam GI & Abdominal Exam: Soft, Normal Bowel Sounds. absent: Distended, Tenderness - Extremities Exam Additional comments: thin, weak. - Neurological Exam Neurological Exam: Alert, Awake, CN II-XII Intact Additional comments: AAO x 1. Orientated to self only. - Psychiatric Exam Psychiatric exam: Normal Affect, Normal Mood - Skin Additional comments: 7cm x 4cm x 5 cm deep Stage IV sacral decubitus ulcer present with dark eschar, Bone is present in base of the ulcer, malodorous discharge present on exam, bilateral hip replacement scars noted, no other scars noted on exam. Taken to OR for debridement of the sacral decubiti ulcer. Assessment and Plan - Assessment and Plan (Free Text) Assessment: 87 yo AA female with large stage IV sacral decubiti ulceration with malodorous discharge. Noted the patient started on Meropenem and IV Vancomycin for antibiotic care. Will deescalate as cultures return. Local wound care. The patient had debridement 03/14/2018. Previous cultures have shown ESBL - E. Coli and Enterococcus growth in the sacral decubiti. Patient has leukocytosis of 15.8. She has been afebrile. Supportive care. ESR 42. Current cultures showing Proteus and Enterococcus. Both are sensitive to ampicillin. Will switch antibiotics to Unasyn IV. Thank you for allowing me to participate in the care of the patient, we will follow with you.
--- NOTE | 2018-03-15 20:42 | PN ---
DATE: 03/15/2018 SUBJECTIVE: This 87-year-old female was examined at her bedside and this case was reviewed in detail with her nurse, Rosalinda Correa, registered nurse and her granddaughter Evelyn present at the bedside. The patient is status post surgical debridement of her sacral decubitus ulcer stage IV. She has a packing in place and now two IV accesses for parenteral antibiotics and mineral replacements including IV potassium. She is lying in bed, denying any fever, chills, chest pain or shortness of breath. She remains alert, but confused to person, time and place and is cooperating with the nursing staff. PHYSICAL EXAMINATION: VITAL SIGNS: Her temperature is 97.8, respirations 19, pulse 51 and blood pressure 98/63 with a pulse ox of 97% on room air. HEENT: Head: Normocephalic, atraumatic. Eyes: No icterus. Ears: Clear. Throat: Noninjected. NECK: Supple. HEART: Regular S1, S2. LUNGS: Clear. ABDOMEN: Soft. EXTREMITIES: No edema. SKIN: Without rash. NEUROLOGIC: Advanced Alzheimer's. PSYCHOLOGIC: Alert, but confused. VASCULAR: Legs warm to touch and sacral area is clean and dry with a dressing intact. LABORATORY DATA: White count 15,800, previously 18,300, hemoglobin 12.7, hematocrit 39.8, platelets 269,000. PT/INR 1.07, PTT 29.7. Sodium 146, K 3.5, chloride 109, bicarb 29, BUN 9, creatinine 0.5, random blood sugar 94, calcium 8.9, magnesium 2.2, bilirubin 0.4, AST 23, ALT 23, alk phos 100, albumin 2.8. IMPRESSION: An 87-year-old female status post surgical debridement of a sacral decubitus, now with a packing in place with comorbidities of advanced Alzheimer's dementia, chronic confusion, hyperlipidemia, agitation, depression, degenerative arthritis. PLAN: As discussed with family and nursing will be to continue Aricept 10 mg p.o. at bedtime, Lipitor 10 mg p.o. at dinner time, meropenem 1 g IV every 8 hours, Remeron 15 mg p.o. at bedtime, Santyl to her surgical wound topically b.i.d. with dry sterile dressing. Surgical wound changes as per the surgical team under the direction of Dr. Angel Brunner. Tylenol 650 p.o. every 6 hours p.r.n. [id number] pain or fever and Ultracet 1 tablet p.o. every 6 hours p.r.n. severe pain, vancomycin 1 g IV every 12 hours and Zofran 4 mg IV every 6 hours p.r.n. nausea and vomiting. The patient will have a repeat comprehensive metabolic, magnesium, phosphorus and CBC in the a.m. Her wound culture is growing Proteus mirabilis and Enterococcus faecalis, it is sensitive to vancomycin and meropenem. Blood cultures show no growth. The patient will be continued on current antibiotics under the direction of Dr. Sarthak Monroe. She remains on a pureed, heart-healthy soft bland diet. She is ordered to have an air mattress, heel protectors, and to be repositioned just her bed every 2 hours. She is ordered to have bedside physical therapy and continued wound care as outlined. She will be followed daily by the surgical team as well as Infectious Disease and additional testing and intervention will be entertained based on clinical progress. It is the family's desire for this patient to return to her home when medically stable and all of the above was discussed in detail with family, nursing and co-consultants. Greater than 35 minutes was spent in the care management, review of labs, orders, medications and treatment for this patient today and outlining of her pain management. All questions were answered. Miranda Meraz MD [id number]
[2018-03-16 06:23] LABS: BASO # 0.05 K/mm3 (0.0-2.0); BASO % 0.3 % (0.0-3.0); EOS # 0.4 (0.0-0.7); EOS % 2.4 % (1.5-5.0); GRAN # 12.81 (1.4-6.5); HEMOGLOBIN 12.3 g/dL (12.0-16.0); LYMPH % 12.4 % (22.0-35.0); MEAN CELL VOLUME 89.7 fl (80.0-105.0); MEAN CORPUSCULAR HEMOGLOBIN 28.3 pg (25.0-35.0); MEAN CORPUSCULAR HGB CONC 31.5 g/dl (31.0-37.0); MEAN PLATELET VOLUME 9.5 fl (7.0-11.0); MONO # 1.1 (0.1-0.6); MONO % 6.9 % (1.0-6.0); RBC 4.35 10^6/uL (3.5-6.1); RED CELL DISTRIBUTION WIDTH 19.8 % (11.5-14.5); WHITE BLOOD COUNT 16.4 10^3/ul (4.5-11.0)
[2018-03-16 07:18] LABS: ALB/GLOB RATIO 0.8 (1.1-1.8); ALBUMIN 2.4 g/dL (3.0-4.8); ALT/SGPT 22 U/L (7-56); AST/SGOT 18 U/L (14-36); BLOOD UREA NITROGEN 13 mg/dL (7-21); CALCIUM 8.9 mg/dL (8.4-10.5); GFR AFRICAN-AMERICAN > 60; GFR NON-AFRICAN AMERICAN > 60
--- NOTE | 2018-03-16 08:10 | CP.PCM.PN ---
Subjective - Date & Time of Evaluation Date of Evaluation: 03/16/18 Time of Evaluation: 08:09 - Subjective Subjective: General Surgery progress note for Dr. Brunner Patient seen and examined at bedside. No acute events overnight. She remains disoriented and generally confused and is unable to provide much information. patient has remained afebrile overnight. Objective - Vital Signs/Intake and Output Vital Signs (last 24 hours): Temp Pulse Resp BP Pulse Ox 97.6 F 54 L 20 100/60 97 03/15/18 16:33 03/15/18 16:33 03/15/18 16:33 03/15/18 16:33 03/14/18 17:54 Intake and Output: 03/16/18 03/16/18 06:59 18:59 Intake Total 240 Balance 240 - Medications Medications: Current Medications Acetaminophen (Tylenol 325mg Tab) 650 mg PO Q6H PRN PRN Reason: Temperature Atorvastatin Calcium (Lipitor) 10 mg PO DIN [facility] Last Admin: 03/15/18 17:28 Dose: 10 mg Collagenase (Santyl) 1 gm TOP BID [facility] Last Admin: 03/15/18 17:29 Dose: Not Given Donepezil HCl (Aricept) 10 mg PO HS [facility] Last Admin: 03/15/18 21:33 Dose: 10 mg Ampicillin Sodium/Sulbactam (Sodium 3 gm/ Sodium Chloride) 100 mls @ 200 mls/ hr IVPB Q6 CHRISTINA PRN Reason: Protocol Last Admin: 03/16/18 05:00 Dose: 200 mls/hr Mirtazapine (Remeron) 15 mg PO HS [facility] Last Admin: 03/15/18 21:33 Dose: 15 mg Ondansetron HCl (Zofran Inj) 4 mg IVP Q6H PRN PRN Reason: Nausea/Vomiting Potassium Phosphate (Potassium Phosphate) 15 mmole IV ONCE ONE Stop: 03/16/18 08:16 Tramadol/Acetaminophen (Ultracet 37.5/325 Mg) 1 tab PO Q6H PRN PRN Reason: Pain, moderate (4-7) - Labs Labs: 03/16/18 06:00 03/16/18 06:00 PT 12.3 SECONDS (9.4-12.5) 03/13/18 13:00 INR 1.07 (0.93-1.08) 03/13/18 13:00 APTT 29.7 Seconds (25.1-36.5) 03/13/18 13:00 - Constitutional Appears: Non-toxic, Confused - Head Exam Head Exam: ATRAUMATIC - ENT Exam ENT Exam: Mucous Membranes Moist - Respiratory Exam Respiratory Exam: NORMAL BREATHING PATTERN - GI/Abdominal Exam GI & Abdominal Exam: Soft. absent: Guarding, Rigid, Tenderness, Rebound - Skin Additional comments: Stage 4 sacral decubitus ulcer with tunneling , wound is developing good granulation tissue and has sloughed much of the necrotic tissue seen on initial examination. Assessment and Plan (1) Sacral decubitus ulcer Assessment & Plan: 87 yr old female s/p bedside debridement of sacral decubitus ulcer on 03/14/18 Wound redressed and packed with Dakins soaked Kerlex today, well tolerated Woundvac planned for tomorrow WBC count increased to 16.4, UA negative, blood cultures negative, wound culture grew Proteus mirabilis (pansensitive) and enterococcus fecaelis will continue Unasyn Status: Acute
[2018-03-16] MEDS ORDERED: Potassium Phosphate 15 MMOLE in Sodium Chloride 0.9% 250 ML IVPB ONE (08:15)
[2018-03-16] MEDS ORDERED: Potassium Phosphate 3 mmol/ml Inj IV ONE (08:15)
[2018-03-16 09:27] LABS: URINE BILIRUBIN NEGATIVE (NEGATIVE); URINE BLOOD TRACE-INTACT (NEGATIVE); URINE GLUCOSE (UA) NEGATIVE (NEGATIVE); URINE LEUKOCYTE ESTERASE TRACE Leu/uL (NEGATIVE); URINE PROTEIN TRACE mg/dL (<30 mg/dL); URINE UROBILINOGEN 0.2 E.U./dL (<1 E.U./dL)
[2018-03-16] MEDS: Collagenase 250 Units/gm Ointment(30 gm) TOP SCH ×2 (09:27→18:08)
[2018-03-16 09:31] LABS: URINE APPEARANCE CLEAR (CLEAR); URINE COLOR YELLOW (YELLOW)
[2018-03-16 09:36] LABS: URINE AMORPHOUS SEDIMENT FEW; URINE BACTERIA MANY (NEG)
--- NOTE | 2018-03-16 10:09 | RAD ---
HISTORY: leukocytosis, hypoxia COMPARISON: No prior. FINDINGS: LUNGS: Reticular markings are questioned at the bilateral bases which is nonspecific and timeframe but nevertheless reflects interstitial pulmonary change. No pulmonary vascular congestion. The findings are likely chronic though an acute interstitial pneumonitis is not excluded. PLEURA: No significant right pleural effusion identified, no pneumothorax apparent bilaterally. Thickening of the minor fissure is minimal versus trace fluid. CARDIOVASCULAR: Under aortic ectasis noted with cardiac silhouette likely magnified though an element of cardiomegaly is difficult to completely exclude. No pulmonary vascular congestion appreciable. OSSEOUS STRUCTURES: No significant abnormalities. VISUALIZED UPPER ABDOMEN: Normal. OTHER FINDINGS: None. IMPRESSION: Potential interstitial pulmonary process occurring at the bases, possibly on a chronic basis though acute or subacute disease is not completely excluded plate. Please see discussion above. No infiltrate or prominent pleural effusion. Trace fluid is not excluded at the minor fissure versus thickening.
--- NOTE | 2018-03-16 13:27 | PN ---
DATE: 03/16/2018 SUBJECTIVE: This 87-year-old female was examined at her bedside in the presence of her son, Jean Claude and this case was reviewed in detail with her nurse, Miranda Leyva. The patient remains hospitalized. She is status post debridement of a stage IV sacral decubitus. She is chronically bedridden at home secondary to chronic Alzheimer's dementia and deconditioning. She was noted on wound cultures to have Proteus mirabilis and Enterococcus faecalis. Cultures were sensitive to meropenem and vancomycin as well as ampicillin. At present, the patient was being followed by Dr. Sarthak Monroe from Infectious Disease, has had her antibiotics adjusted to Unasyn 3 g IV every 6. The patient is noted to have low-grade fever and white count today is 16,400, yesterday 15,800 and postoperative 18,300. The nursing staff reports the patient does not have any complaints of fever, chills, chest pain or shortness of breath and had a urinalysis obtained by straight cath earlier today. PHYSICAL EXAMINATION: VITAL SIGNS: Temperature is 99.2, respirations 20, pulse 99 and blood pressure 126/70 with a pulse ox of 91% on room air. HEENT: Head normocephalic, atraumatic. Eyes: No icterus. Ears: Clear. Throat: Noninjected. NECK: Supple. HEART: Regular S1, S2. LUNGS: Clear. ABDOMEN: Soft. EXTREMITIES: No edema. SKIN: Without rash. NEUROLOGICAL: Intact. Unchanged. PSYCHOLOGICAL: Chronic confusion. VASCULAR: Legs warm to touch. Sacral decubitus has packing and dry sterile dressing intact. LABORATORY DATA: White count 16,400, hemoglobin 12.3, hematocrit 39, platelets 226,000. Sodium 150, K 3.9, chloride 113, bicarb 28, BUN 13, creatinine 0.5, random blood sugar 113, phosphorous 2.3, calcium 8.9, magnesium 2.3, bilirubin 0.5, AST 18, ALT 22 and alk phos 81, albumin 2.4. Blood culture showed no growth at 48 hours. IMPRESSION: An 87-year-old female now with hypernatremia with comorbidities of stage IV decubitus sacral ulcer growing Proteus mirabilis and Enterococcus faecalis, now on IV Unasyn; chronic Alzheimer's dementia; hyperlipidemia; history of agitation and anxiety neurosis; degenerative arthritis and deconditioning with bedridden status at home under the care of her family, also with hyperlipidemia. PLAN: The plan as discussed with the patient's family member at bedside as well as nursing and Case Management will be to continue Unasyn 3 g IV piggyback every 6 hours duration and choice of antibiotics to be decided by Dr. Sarthak Monroe from Infectious Disease. She continues on Aricept 10 mg p.o. at bedtime. She will be started on D5W at 125 mL/hour with a repeat basic metabolic panel ordered for the a.m. She continues on Lipitor 10 mg p.o. at dinner time, Remeron 15 mg p.o. at bedtime, Santyl topical to sacral ulcer b.i.d. with dry sterile dressing and packing done by surgical team, Tylenol 650 p.o. every 6 hours p.r.n. mild pain or temperature greater than 101 and Ultracet 1 tablet p.o. every 6 hours p.r.n. severe pain, Zofran 4 mg IV every 6 hours p.r.n. nausea, vomiting. She is on a specialty air mattress. She is ordered to have her repositioning done every 2 hours. She is wearing heel protectors and will have a bladder scan p.r.n. to rule out urinary tract retention. She continues on a heart-healthy soft bland diet. She is being fed her meals and is receiving diet supplement with Ensure Enlive two times daily. Ultimate plan will be for this patient to be discharged to home with family providing 24-hour supervision and skin and total care for her. Greater than 35 minutes was spent in the care and management, review of labs, cultures, adjustment of antibiotics and IV fluids, outlining of labs for a.m. and disposition with family, nursing and Case Management. All questions were answered. Miranda Meraz MD
--- NOTE | 2018-03-16 15:35 | PN ---
DATE: 03/19/2018 SUBJECTIVE: Cary Castillo is seen. The wound was debrided and is doing well with Dakin's. We will plan to switch it over to wound VAC as soon as possible. This is 87 years old is being treated with an air mattress as we speak. We will follow peripherally for the wound. Angel Brunner MD
--- NOTE | 2018-03-16 16:59 | CP.PCM.PN ---
Subjective - Date & Time of Evaluation Date of Evaluation: 03/16/18 Time of Evaluation: 15:30 - Subjective Subjective: Infectious Disease Follow Up: March 16, 2018 87 yo AA female brought in from home with a large Stage IV sacral decubiti ulceration. There are sinus tracts present and a large eschar. Malodorous discharge from the wound. Sacral bone clearly visible in center of wound. Patient herself is unable to provide any information due to her numerous medical conditions. The patient is awake but with difficulty speaking especially with her poor dentition. Patient with previous admission in January 2018. Previous debridement. Taken to OR for debridement with surgery during this hospitalization. For wound vac tomorrow. Patient appears comfortable. Objective - Vital Signs/Intake and Output Vital Signs (last 24 hours): Temp Pulse Resp BP Pulse Ox 99.2 F 99 H 20 126/70 91 L 03/16/18 08:12 03/16/18 08:12 03/16/18 08:12 03/16/18 08:12 03/16/18 08:12 Intake and Output: 03/16/18 03/16/18 06:59 18:59 Intake Total 240 Balance 240 - Medications Medications: Current Medications Acetaminophen (Tylenol 325mg Tab) 650 mg PO Q6H PRN PRN Reason: Temperature Atorvastatin Calcium (Lipitor) 10 mg PO DIN [facility] Last Admin: 03/15/18 17:28 Dose: 10 mg Collagenase (Santyl) 1 gm TOP BID [facility] Last Admin: 03/16/18 09:27 Dose: Not Given Donepezil HCl (Aricept) 10 mg PO HS [facility] Last Admin: 03/15/18 21:33 Dose: 10 mg Ampicillin Sodium/Sulbactam (Sodium 3 gm/ Sodium Chloride) 100 mls @ 200 mls/ hr IVPB Q6 CHRISTINA PRN Reason: Protocol Last Admin: 03/16/18 11:38 Dose: 200 mls/hr Dextrose (Dextrose 5% In Water 1000 Ml) 1,000 mls @ 125 mls/hr IV .Q8H [facility] Last Admin: 03/16/18 10:05 Dose: 125 mls/hr Mirtazapine (Remeron) 15 mg PO HS [facility] Last Admin: 03/15/18 21:33 Dose: 15 mg Ondansetron HCl (Zofran Inj) 4 mg IVP Q6H PRN PRN Reason: Nausea/Vomiting Tramadol/Acetaminophen (Ultracet 37.5/325 Mg) 1 tab PO Q6H PRN PRN Reason: Pain, moderate (4-7) - Labs Labs: 03/16/18 06:00 03/16/18 06:00 PT 12.3 SECONDS (9.4-12.5) 03/13/18 13:00 INR 1.07 (0.93-1.08) 03/13/18 13:00 APTT 29.7 Seconds (25.1-36.5) 03/13/18 13:00 - Constitutional Appears: No Acute Distress, Chronically Ill - Head Exam Head Exam: ATRAUMATIC, NORMOCEPHALIC Additional comments: Full Dentures. - Eye Exam Eye Exam: EOMI, PERRL Pupil Exam: NORMAL ACCOMODATION, PERRL - ENT Exam ENT Exam: Mucous Membranes Moist, Normal External Ear Exam, TM's Normal Bilaterally - Neck Exam Neck Exam: Full ROM, Normal Inspection - Respiratory Exam Respiratory Exam: Clear to Ausculation Bilateral, NORMAL BREATHING PATTERN. absent: Rales, Rhonchi, Wheezes - Cardiovascular Exam Cardiovascular Exam: REGULAR RHYTHM, RRR, +S1, +S2 - GI/Abdominal Exam GI & Abdominal Exam: Soft, Normal Bowel Sounds. absent: Distended, Tenderness - Extremities Exam Additional comments: thin, weak - Neurological Exam Neurological Exam: Alert, Awake Additional comments: AAO x 1, orientated to self at best. - Psychiatric Exam Psychiatric exam: Normal Affect, Normal Mood - Skin Additional comments: 7cm x 4cm x 5 cm deep Stage IV sacral decubitus ulcer present with granulation tissue, Bone is present in base of the ulcer, malodorous discharge no longer present on exam, bilateral hip replacement scars noted, no other scars noted on exam. Taken to OR for debridement of the sacral decubiti ulcer a few days ago. Assessment and Plan - Assessment and Plan (Free Text) Assessment: 87 yo AA female with large stage IV sacral decubiti ulceration with malodorous discharge. Noted the patient started on Meropenem and IV Vancomycin for antibiotic care. Will deescalate as cultures return. Local wound care. The patient had debridement 03/14/2018. Previous cultures have shown ESBL - E. Coli and Enterococcus growth in the sacral decubiti. Patient has leukocytosis of 16.4. She has been afebrile. Supportive care. ESR 42. Current cultures showing Proteus and Enterococcus. Both are sensitive to ampicillin. Continue with Unasyn IV. For wound vac placement tomorrow. Thank you for allowing me to participate in the care of the patient, we will follow with you.
[2018-03-17 06:33] LABS: BASO # 0.02 K/mm3 (0.0-2.0); BASO % 0.2 % (0.0-3.0); EOS # 0.3 (0.0-0.7); EOS % 2.6 % (1.5-5.0); GRAN # 9.33 (1.4-6.5); LYMPH # 1.6 (1.2-3.4); LYMPH % 13.5 % (22.0-35.0); MEAN CELL VOLUME 89.7 fl (80.0-105.0); MEAN CORPUSCULAR HEMOGLOBIN 28.9 pg (25.0-35.0); MEAN CORPUSCULAR HGB CONC 32.2 g/dl (31.0-37.0); MEAN PLATELET VOLUME 9.3 fl (7.0-11.0); MONO # 0.8 (0.1-0.6); MONO % 6.7 % (1.0-6.0); RBC 3.29 10^6/uL (3.5-6.1); RED CELL DISTRIBUTION WIDTH 19.8 % (11.5-14.5); WHITE BLOOD COUNT 12.1 10^3/ul (4.5-11.0)
[2018-03-17 06:34] LABS: HEMOGLOBIN 9.5 g/dL (12.0-16.0)
[2018-03-17 06:41] LABS: ALB/GLOB RATIO 0.7 (1.1-1.8); ALBUMIN 1.9 g/dL (3.0-4.8); ALT/SGPT 31 U/L (7-56); AST/SGOT 36 U/L (14-36); BLOOD UREA NITROGEN 10 mg/dL (7-21); GFR AFRICAN-AMERICAN > 60; GFR NON-AFRICAN AMERICAN > 60
[2018-03-17] MEDS ORDERED: Potassium Chloride 40 mEq/30 ml LIQ UD PO SCH (08:15)
--- NOTE | 2018-03-17 09:51 | CP.PCM.PN ---
Subjective - Date & Time of Evaluation Date of Evaluation: 03/17/18 Time of Evaluation: 09:48 - Subjective Subjective: General Surgery progress note for Dr. Brunner Patient seen and examined this morning at bedside. No acute events overnight per nursing. Patient doing well with no change in mental status. Wound vac placed today patient tolerated well. Objective - Vital Signs/Intake and Output Vital Signs (last 24 hours): Temp Pulse Resp BP Pulse Ox 97.8 F 81 20 120/72 100 03/17/18 08:06 03/17/18 08:06 03/17/18 08:06 03/17/18 08:06 03/17/18 08:06 Intake and Output: 03/17/18 03/17/18 06:59 18:59 Intake Total 100 Output Total 0 Balance 100 - Medications Medications: Current Medications Acetaminophen (Tylenol 325mg Tab) 650 mg PO Q6H PRN PRN Reason: Temperature Atorvastatin Calcium (Lipitor) 10 mg PO DIN [facility] Last Admin: 03/16/18 18:11 Dose: 10 mg Collagenase (Santyl) 1 gm TOP BID [facility] Last Admin: 03/16/18 18:08 Dose: Not Given Donepezil HCl (Aricept) 10 mg PO HS [facility] Last Admin: 03/16/18 21:17 Dose: 10 mg Ampicillin Sodium/Sulbactam (Sodium 3 gm/ Sodium Chloride) 100 mls @ 200 mls/ hr IVPB Q6 CHRISTINA PRN Reason: Protocol Last Admin: 03/17/18 05:03 Dose: 200 mls/hr Dextrose (Dextrose 5% In Water 1000 Ml) 1,000 mls @ 125 mls/hr IV .Q8H [facility] Last Admin: 03/16/18 10:05 Dose: 125 mls/hr Mirtazapine (Remeron) 15 mg PO HS [facility] Last Admin: 03/16/18 21:17 Dose: 15 mg Ondansetron HCl (Zofran Inj) 4 mg IVP Q6H PRN PRN Reason: Nausea/Vomiting Potassium Chloride (Potassium Chloride Oral Soln) 40 meq PO Q2H [facility] Stop: 03/17/18 10:16 Tramadol/Acetaminophen (Ultracet 37.5/325 Mg) 1 tab PO Q6H PRN PRN Reason: Pain, moderate (4-7) - Labs Labs: 03/17/18 06:00 03/17/18 06:00 PT 12.3 SECONDS (9.4-12.5) 03/13/18 13:00 INR 1.07 (0.93-1.08) 03/13/18 13:00 APTT 29.7 Seconds (25.1-36.5) 03/13/18 13:00 - Constitutional Appears: Well, No Acute Distress - Head Exam Head Exam: ATRAUMATIC, NORMOCEPHALIC - Respiratory Exam Respiratory Exam: NORMAL BREATHING PATTERN - GI/Abdominal Exam GI & Abdominal Exam: Soft. absent: Guarding, Rigid, Tenderness, Rebound - Skin Additional comments: Stage IV decubitus ulcer with tunneling, wound is developing good granulation tissue, wound vac placed today with good seal achieved Assessment and Plan (1) Sacral decubitus ulcer Assessment & Plan: 87 yr old female with stage IV sacral decubitus ulcer s/p bedside debridement 03/14 wound vac placed today on 125 mmHg suction with no leak wound vac to be replaced 03/20 will continue current Unasyn Discussed plan with Dr. Kannan Sofia, PGY1 Status: Acute
--- NOTE | 2018-03-17 10:00 | RAD ---
HISTORY: PICC placement COMPARISON: 03/16/2018 at 9:25 a.m. FINDINGS: LUNGS: No active pulmonary disease. PLEURA: No significant pleural effusion identified, no pneumothorax apparent. CARDIOVASCULAR: New left PICC catheter terminating in the region of the superior vena cava. OSSEOUS STRUCTURES: No significant abnormalities. VISUALIZED UPPER ABDOMEN: Normal. OTHER FINDINGS: None. IMPRESSION: New left PICC catheter terminating in the region of the SVC. No pneumothorax. No acute infiltrate.
[2018-03-17] MEDS ORDERED: Potassium Phosphate 15 MMOLE in Dextrose 5% In Water 250 ML IVPB ONE (10:11)
[2018-03-17] MEDS ORDERED: Albumin Human 25% (12.5 gm/50 ml) IV ONE (10:27)
--- NOTE | 2018-03-17 15:44 | CP.PCM.PN ---
Subjective - Date & Time of Evaluation Date of Evaluation: 03/17/18 Time of Evaluation: 14:30 - Subjective Subjective: Infectious Disease Follow Up: March 17, 2018 87 yo AA female brought in from home with a large Stage IV sacral decubiti ulceration. There are sinus tracts present and a large eschar. Malodorous discharge from the wound. Sacral bone clearly visible in center of wound. Patient herself is unable to provide any information due to her numerous medical conditions. The patient is awake but with difficulty speaking especially with her poor dentition. The patient is still very confused... although family states that she is more coherent normally. Patient with previous admission in January 2018. Previous debridement. Taken to OR for debridement with surgery during this hospitalization. For wound vac today. On the whole, the patient appears comfortable. Objective - Vital Signs/Intake and Output Vital Signs (last 24 hours): Temp Pulse Resp BP Pulse Ox 97.8 F 81 20 120/72 100 03/17/18 08:06 03/17/18 08:06 03/17/18 08:06 03/17/18 08:06 03/17/18 08:06 Intake and Output: 03/17/18 03/17/18 06:59 18:59 Intake Total 100 Output Total 0 Balance 100 - Medications Medications: Current Medications Acetaminophen (Tylenol 325mg Tab) 650 mg PO Q6H PRN PRN Reason: Temperature Atorvastatin Calcium (Lipitor) 10 mg PO DIN [facility] Last Admin: 03/16/18 18:11 Dose: 10 mg Donepezil HCl (Aricept) 10 mg PO HS [facility] Last Admin: 03/16/18 21:17 Dose: 10 mg Ampicillin Sodium/Sulbactam (Sodium 3 gm/ Sodium Chloride) 100 mls @ 200 mls/ hr IVPB Q6 CHRISTINA PRN Reason: Protocol Last Admin: 03/17/18 11:26 Dose: 200 mls/hr Potassium Phosphate 15 mmole/ (Dextrose) 255 mls @ 42.5 mls/hr IVPB ONCE ONE Stop: 03/17/18 16:10 Dextrose (Dextrose 5% In Water 1000 Ml) 1,000 mls @ 150 mls/hr IV .Q6H40M CHRISTINA Mirtazapine (Remeron) 15 mg PO [facility] Last Admin: 03/16/18 21:17 Dose: 15 mg Ondansetron HCl (Zofran Inj) 4 mg IVP Q6H PRN PRN Reason: Nausea/Vomiting Tramadol/Acetaminophen (Ultracet 37.5/325 Mg) 1 tab PO Q6H PRN PRN Reason: Pain, moderate (4-7) - Labs Labs: 03/17/18 06:00 03/17/18 06:00 PT 12.3 SECONDS (9.4-12.5) 03/13/18 13:00 INR 1.07 (0.93-1.08) 03/13/18 13:00 APTT 29.7 Seconds (25.1-36.5) 03/13/18 13:00 - Constitutional Appears: Non-toxic, No Acute Distress, Chronically Ill - Head Exam Head Exam: ATRAUMATIC, NORMOCEPHALIC Additional comments: Full Dentures - Eye Exam Eye Exam: EOMI, PERRL Pupil Exam: NORMAL ACCOMODATION, PERRL - ENT Exam ENT Exam: Mucous Membranes Moist, Normal External Ear Exam, TM's Normal Bilaterally - Neck Exam Neck Exam: Full ROM, Normal Inspection - Respiratory Exam Respiratory Exam: Clear to Ausculation Bilateral, NORMAL BREATHING PATTERN. absent: Rales, Rhonchi, Wheezes - Cardiovascular Exam Cardiovascular Exam: REGULAR RHYTHM, RRR, +S1, +S2 - GI/Abdominal Exam GI & Abdominal Exam: Soft, Normal Bowel Sounds. absent: Distended, Tenderness - Extremities Exam Additional comments: thin, weak - Neurological Exam Neurological Exam: Alert, Awake Additional comments: AAO x 1, orientated to self at best. - Psychiatric Exam Psychiatric exam: Normal Affect, Normal Mood - Skin Additional comments: 7cm x 4cm x 5 cm deep Stage IV sacral decubitus ulcer present with granulation tissue, Bone is present in base of the ulcer, malodorous discharge no longer present on exam, bilateral hip replacement scars noted, no other scars noted on exam. Taken to OR for debridement of the sacral decubiti ulcer a few days ago. Wound vac now placed. Assessment and Plan - Assessment and Plan (Free Text) Assessment: 87 yo AA female with large stage IV sacral decubiti ulceration with malodorous discharge. Noted the patient started on Meropenem and IV Vancomycin for antibiotic care. Will deescalate as cultures return. Local wound care. The patient had debridement 03/14/2018. Previous cultures have shown ESBL - E. Coli and Enterococcus growth in the sacral decubiti. Patient has leukocytosis of 16.4. She has been afebrile. Supportive care. ESR 42. Current cultures showing Proteus and Enterococcus. Both are sensitive to ampicillin. Continue with Unasyn IV. Considering 6 weeks of antibiotics. Assumed osteomyelitis given initial appearance. Wound vac placement today and replacement on 03/20. Thank you for allowing me to participate in the care of the patient, we will follow with you.
[2018-03-17] MEDS: Potassium & Sodium Phosphate PO SCH (18:03)
--- NOTE | 2018-03-18 08:19 | CP.PCM.PN ---
Subjective - Date & Time of Evaluation Date of Evaluation: 03/18/18 Time of Evaluation: 08:16 - Subjective Subjective: GENERAL SURGERY PROGRESS NOTE FOR DR. VAZQUEZ Patient seen and examined at bedside. NING. Wound vac in place on 125mmHg suction without leak. Objective - Vital Signs/Intake and Output Vital Signs (last 24 hours): Temp Pulse Resp BP Pulse Ox 97.5 F L 86 18 112/71 100 03/17/18 18:00 03/17/18 18:00 03/17/18 18:00 03/17/18 18:00 03/17/18 08:06 Intake and Output: 03/18/18 03/18/18 06:59 18:59 Intake Total 120 Balance 120 - Medications Medications: Current Medications Acetaminophen (Tylenol 325mg Tab) 650 mg PO Q6H PRN PRN Reason: Temperature Atorvastatin Calcium (Lipitor) 10 mg PO DIN [facility] Last Admin: 03/17/18 18:03 Dose: 10 mg Donepezil HCl (Aricept) 10 mg PO HS [facility] Last Admin: 03/17/18 22:25 Dose: 10 mg Ampicillin Sodium/Sulbactam (Sodium 3 gm/ Sodium Chloride) 100 mls @ 200 mls/ hr IVPB Q6 [facility] PRN Reason: Protocol Last Admin: 03/18/18 05:57 Dose: 200 mls/hr Dextrose (Dextrose 5% In Water 1000 Ml) 1,000 mls @ 150 mls/hr IV .Q6H40M [facility] Last Admin: 03/18/18 02:30 Dose: 150 mls/hr Mirtazapine (Remeron) 15 mg PO HS [facility] Last Admin: 03/17/18 22:25 Dose: 15 mg Ondansetron HCl (Zofran Inj) 4 mg IVP Q6H PRN PRN Reason: Nausea/Vomiting Potassium Phos/Sodium Phos (Neutra-Phos) 1 pkt PO DAILY [facility] Last Admin: 03/17/18 18:03 Dose: 1 pkt Tramadol/Acetaminophen (Ultracet 37.5/325 Mg) 1 tab PO Q6H PRN PRN Reason: Pain, moderate (4-7) - Labs Labs: 03/17/18 06:00 03/17/18 06:00 PT 12.3 SECONDS (9.4-12.5) 03/13/18 13:00 INR 1.07 (0.93-1.08) 03/13/18 13:00 APTT 29.7 Seconds (25.1-36.5) 03/13/18 13:00 - Constitutional Appears: Non-toxic, No Acute Distress - Head Exam Head Exam: ATRAUMATIC - Respiratory Exam Respiratory Exam: NORMAL BREATHING PATTERN. absent: Respiratory Distress - Cardiovascular Exam Cardiovascular Exam: +S1, +S2 - Neurological Exam Neurological Exam: Altered - Psychiatric Exam Psychiatric exam: Normal Affect - Skin Additional comments: Wound vac in place over sacral decubitus ulcer, on 125mmHg, no leak Assessment and Plan - Assessment and Plan (Free Text) Assessment: 87 yr old female with stage IV sacral decubitus ulcer s/p bedside debridement 03/14 - Wound vac placed yesterday - Continue on 125 mmHg suction - Wound vac to be replaced 03/20 - Continue Antibiotics (Unasyn) per ID for 6 weeks. Cx = Proteus and Enterococcus. Both are sensitive to ampicillin. - Possible transfer to [facility] at tomorrow as per JORGITO note - Discussed plan with Dr. Kannan Manriquez PGY-4
[2018-03-18 08:50] LABS: BASO # 0.03 K/mm3 (0.0-2.0); BASO % 0.3 % (0.0-3.0); EOS # 0.6 (0.0-0.7); EOS % 4.6 % (1.5-5.0); GRAN # 8.46 (1.4-6.5); GRAN % 70.8 % (50.0-68.0); HEMOGLOBIN 9.9 g/dL (12.0-16.0); LYMPH # 2.1 (1.2-3.4); LYMPH % 17.7 % (22.0-35.0); MEAN CORPUSCULAR HEMOGLOBIN 28.2 pg (25.0-35.0); MEAN PLATELET VOLUME 9.5 fl (7.0-11.0); MONO # 0.8 (0.1-0.6); MONO % 6.6 % (1.0-6.0); RBC 3.51 10^6/uL (3.5-6.1); RED CELL DISTRIBUTION WIDTH 19.4 % (11.5-14.5); WHITE BLOOD COUNT 11.9 10^3/ul (4.5-11.0)
[2018-03-18] MEDS: Potassium & Sodium Phosphate PO SCH (09:09)
[2018-03-18 09:19] LABS: ALB/GLOB RATIO 0.8 (1.1-1.8); ALBUMIN 2.1 g/dL (3.0-4.8); ALT/SGPT 23 U/L (7-56); AST/SGOT 32 U/L (14-36); BLOOD UREA NITROGEN 4 mg/dL (7-21); CALCIUM 7.7 mg/dL (8.4-10.5); GFR AFRICAN-AMERICAN > 60; GFR NON-AFRICAN AMERICAN > 60
--- NOTE | 2018-03-18 15:08 | CP.PCM.PN ---
Subjective - Date & Time of Evaluation Date of Evaluation: 03/18/18 Time of Evaluation: 14:00 - Subjective Subjective: Infectious Disease Follow Up: March 18, 2018 87 yo AA female brought in from home with a large Stage IV sacral decubiti ulceration. There are sinus tracts present and a large eschar. Malodorous discharge from the wound. Sacral bone clearly visible in center of wound. Patient herself is unable to provide any information due to her numerous medical conditions. The patient is awake but with difficulty speaking especially with her poor dentition. The patient is still very confused... although family states that she is more coherent normally. Patient with previous admission in January 2018. Previous debridement. Taken to OR for debridement with surgery during this hospitalization. Wound vac in place. On the whole, the patient appears comfortable. Objective - Vital Signs/Intake and Output Vital Signs (last 24 hours): Temp Pulse Resp BP Pulse Ox 98.0 F 74 19 127/76 100 03/18/18 06:00 03/18/18 06:00 03/18/18 06:00 03/18/18 06:00 03/18/18 06:00 Intake and Output: 03/18/18 03/18/18 06:59 18:59 Intake Total 120 Balance 120 - Medications Medications: Current Medications Acetaminophen (Tylenol 325mg Tab) 650 mg PO Q6H PRN PRN Reason: Temperature Atorvastatin Calcium (Lipitor) 10 mg PO DIN [facility] Last Admin: 03/17/18 18:03 Dose: 10 mg Donepezil HCl (Aricept) 10 mg PO [facility] Last Admin: 03/17/18 22:25 Dose: 10 mg Ampicillin Sodium/Sulbactam (Sodium 3 gm/ Sodium Chloride) 100 mls @ 200 mls/ hr IVPB Q6 [facility]RISTINA PRN Reason: Protocol Last Admin: 03/18/18 11:55 Dose: 200 mls/hr Dextrose (Dextrose 5% In Water 1000 Ml) 1,000 mls @ 150 mls/hr IV .Q6H40M [facility] Last Admin: 03/18/18 09:09 Dose: 150 mls/hr Mirtazapine (Remeron) 15 mg PO HS [facility] Last Admin: 03/17/18 22:25 Dose: 15 mg Ondansetron HCl (Zofran Inj) 4 mg IVP Q6H PRN PRN Reason: Nausea/Vomiting Potassium Phos/Sodium Phos (Neutra-Phos) 1 pkt PO DAILY [facility] Last Admin: 03/18/18 09:09 Dose: 1 pkt Tramadol/Acetaminophen (Ultracet 37.5/325 Mg) 1 tab PO Q6H PRN PRN Reason: Pain, moderate (4-7) - Labs Labs: 03/18/18 08:00 03/18/18 08:00 PT 12.3 SECONDS (9.4-12.5) 03/13/18 13:00 INR 1.07 (0.93-1.08) 03/13/18 13:00 APTT 29.7 Seconds (25.1-36.5) 03/13/18 13:00 - Constitutional Appears: Non-toxic, No Acute Distress, Chronically Ill - Head Exam Head Exam: ATRAUMATIC, NORMOCEPHALIC Additional comments: Full Dentures. - Eye Exam Eye Exam: EOMI, PERRL Pupil Exam: NORMAL ACCOMODATION, PERRL - ENT Exam ENT Exam: Mucous Membranes Moist, Normal External Ear Exam, TM's Normal Bilaterally - Neck Exam Neck Exam: Full ROM, Normal Inspection - Respiratory Exam Respiratory Exam: Clear to Ausculation Bilateral, NORMAL BREATHING PATTERN. absent: Rales, Rhonchi, Wheezes - Cardiovascular Exam Cardiovascular Exam: REGULAR RHYTHM, RRR, +S1, +S2 - GI/Abdominal Exam GI & Abdominal Exam: Soft, Normal Bowel Sounds. absent: Distended, Tenderness - Extremities Exam Additional comments: thin, weak - Neurological Exam Neurological Exam: Alert, Awake Additional comments: AAO x 1, orientated to self at best. - Psychiatric Exam Additional comments: Demented and Confused. - Skin Additional comments: 7cm x 4cm x 5 cm deep Stage IV sacral decubitus ulcer present with granulation tissue, Bone is present in base of the ulcer, malodorous discharge no longer present on exam, bilateral hip replacement scars noted, no other scars noted on exam. Taken to OR for debridement of the sacral decubiti ulcer a few days ago. Wound vac in place. Assessment and Plan - Assessment and Plan (Free Text) Assessment: 87 yo AA female with large stage IV sacral decubiti ulceration with malodorous discharge. Noted the patient started on Meropenem and IV Vancomycin for antibiotic care. Will deescalate as cultures return. Local wound care. The patient had debridement 03/14/2018. Previous cultures have shown ESBL - E. Coli and Enterococcus growth in the sacral decubiti. Patient has leukocytosis of 16.4. She has been afebrile. Supportive care. ESR 42. Current cultures showing Proteus and Enterococcus. Both are sensitive to ampicillin. Continue with Unasyn IV. Considering 6 weeks of antibiotics. Assumed osteomyelitis given initial appearance. Wound vac placement with replacement on 03/20. For transfer to [facility] at that time. Thank you for allowing me to participate in the care of the patient, we will follow with you.
[2018-03-18 16:32] VITALS: RESP 20
[2018-03-18] MEDS ORDERED: Potassium Chloride 40 mEq/30 ml LIQ UD PO ONE (17:23)
--- NOTE | 2018-03-18 18:08 | PN ---
DATE: 03/17/2018 SUBJECTIVE: This 87-year-old female was examined at the bedside in the presence of her nurse, Sushma Wooten, registered nurse and present for the interview were her son, Jean Claude Silverio and her , Riccardo Castillo. This morning, the patient was noted to have a drop in her hemoglobin and hematocrit. Previously, she had had a hemoglobin of 12.7 with hematocrit of 39.8. Today's hemoglobin was 9.5 with hematocrit of 29.5. The nursing staff denied any knowledge of hematemesis or melena and the patient is receiving parenteral antibiotics for sacral ulcer stage IV that will require 6 weeks of parenteral antibiotics. Also, the patient was noted to have persistent hypernatremia despite receiving D5W at 125 mL/hour. Yesterday, her sodium was 150 and today it is 149. She is also hypokalemic and is receiving parenteral K-riders for this issue as well. Nursing staff denies any fever, chills, chest pain or shortness of breath. PHYSICAL EXAMINATION: VITAL SIGNS: On physical exam, she was noted to be in a normal sinus rhythm on the awake overnight monitor with temperature 97.8, respirations 20, pulse 81 and blood pressure 120/72 with a pulse ox of 100%. HEENT: Head: Normocephalic, atraumatic. Eyes: No icterus. Ears: Clear. Throat: Noninjected. NECK: Supple. HEART: S1, S2 regular. LUNGS: Clear. ABDOMEN: Soft. EXTREMITIES: No edema. SKIN: Without rash. Sacral ulcer with packing intact and a wound VAC present. Dressing clean and dry. Stool occult blood negative, brown in nature. VASCULAR: Legs warm to touch. PSYCHOLOGICAL: Chronic organic brain syndrome. NEUROLOGICAL: Moves all 4 extremities. LABORATORY DATA: Sodium 149, K 3.1, chloride 113, bicarb 32, BUN 10, creatinine 0.4, random blood sugar 104, calcium 8, phosphorous 2.2, albumin low 1.9. All liver function testing was normal including bilirubin 0.3, AST 36, ALT 31, alk phos 61, magnesium 2.1. Urinalysis showed microscopic rbc's, white blood cells, trace protein, white count 12,100, hemoglobin 9.5, hematocrit 29.5, platelets 181,000. PT/INR 1.07, PTT 29.7. IMPRESSION: An 87-year-old female with a stage IV sacral ulcer, recently debrided by Dr. Angel Brunner from Surgery, now with packing and wound vacuum-assisted closure in place and intact with microbiology study showing Proteus mirabilis and Enterococcus faecalis sensitive to Unasyn and also the patient with a history of organic brain syndrome, Alzheimer's dementia, hyperlipidemia, anxiety and depression, degenerative arthritis and bedridden status. PLAN: To continue unison 3 g IV every 6 hours for 6 weeks, Aricept 10 mg p.o. at bedtime, D5W 150 mL/hour IV, Lipitor 10 mg p.o. at dinner time, Neutra-Phos 1 packet p.o. daily, Remeron 15 mg p.o. at bedtime, Tylenol 650 p.o. every 6 hours p.r.n. mild pain or temperature greater than 101 and Ultracet 1 tablet p.o. every 6 hours p.r.n. severe pain with Zofran ordered 4 mg IV every 6 hours p.r.n. nausea and vomiting. The patient will have a repeat comprehensive metabolic panel and CBC in the a.m. She is receiving albumin 25% IV piggyback today. She is will have PICC line insertion. Continue on a heart-healthy soft bland pureed diet. She is ordered to have an air mattress, heel protectors, bladder scanning p.r.n. to rule out urinary retention. She will be repositioned and turned every 2 hours. She will have straight catheter for any issues of urinary retention. She is ordered to have bedside physical therapy and she is also ordered to have Ensure Enlive supplement 2 per day. Ultimate plan will be [facility] for intermediate care of her sacral wound and parenteral antibiotics when medically stable and greater than 35 minutes was spent in the care and management, review of orders, labs, outlining of treatment plan and discussion of this case with her family including son and . All questions were answered. Miranda Meraz MD NORMA
--- NOTE | 2018-03-18 18:19 | PN ---
DATE: 03/18/2018 SUBJECTIVE: This 87-year-old female remains hospitalized with multiple medical problems. She is currently being treated with parenteral Unasyn for stage IV sacral ulcer that will require 6 weeks of IV antibiotics. The patient is awaiting a PICC line placement for her IV antibiotic care and is being treated with parenteral fluids, potassium supplementation and is having her blood count and electrolytes monitored because of anemia and hypernatremia. The nursing staff reports no fever, no chills. PHYSICAL EXAMINATION: VITAL SIGNS: On physical exam, her temperature was 98, respirations 19, pulse 74 and blood pressure 127/76 with a pulse ox of 100% on room air. HEENT: Head normocephalic, atraumatic. Eyes: No icterus. Ears: Clear. Throat: Noninjected. NECK: Supple. HEART: Regular S1, S2. LUNGS: Clear. ABDOMEN: Soft. EXTREMITIES: No edema. SKIN: Without rash. NEUROLOGICAL: Unchanged. PSYCHOLOGICAL: Alert, but confused. VASCULAR: Legs warm to touch. Her sacral wound is clean and dry. The packing is intact. The wound VAC is functioning well. LABORATORY DATA: White count 11,900, hemoglobin 9.9, hematocrit 30.9, platelets 172,000. Stool for occult blood negative. Sodium 137, K 3.4, chloride 102, bicarb 29, BUN 4, creatinine 0.4, random blood sugar 107, calcium 7.7, phosphorous 2, magnesium 1.8, bilirubin 0.3, AST 32, ALT 23 and alk phos 70, albumin low 2.1. Wound cultures are growing Proteus mirabilis, Enterococcus faecalis, both sensitive to Unasyn. Urine culture shows no growth. IMPRESSION: An 87-year-old female with a stage IV sacral ulcer, status post debridement, now receiving packing and a wound vacuum-assisted closure daily while continuing Unasyn 3 g IV every 6 hours for 6 weeks' duration. Also with newly noted hypernatremia, correcting with IV fluids; hypokalemia, correcting with IV potassium supplementation; chronic organic brain syndrome; hyperlipidemia; hypophosphatemia; hypoalbuminemia; Alzheimer's related depression; degenerative arthritis with plans to continue Unasyn 3 g IV piggyback every 6 hours. The patient needs PICC. This is to be done by Dr. Jeff Mata Tuesday morning. She continues on Aricept 10 mg p.o. at bedtime. D5W will be decreased to 100 mL/hour. Lipitor 10 mg p.o. at dinnertime, Neutra-Phos one packet p.o. daily, Remeron 15 g p.o. at bedtime, Tylenol 650 p.o. every 6 hours p.r.n. mild pain or temperature greater than 101, Ultracet 1 tablet p.o. every 6 hours p.r.n. severe pain and Zofran 4 mg IV every 6 hours p.r.n. nausea and vomiting. The patient is ordered to have a comprehensive metabolic panel in the a.m. as well as a CBC. She is receiving daily wound care. She will need a peripherally inserted central catheter line insertion prior to transfer to subacute rehab. She continues on a heart-healthy, pureed diet. She is wearing heel protectors, on an air mattress. She is having bladder scanning to rule out urine retention and is being repositioned for skin care every 2 hours. She will continue on nutritional supplementation. She continues on bedside physical therapy. Greater than 35 minutes was spent in the care and management, review of orders, labs, treatment plan and discussion of this case with nursing and family. All questions were answered. Miranda Meraz MD MTDVj
[2018-03-19 07:02] LABS: BASO # 0.03 K/mm3 (0.0-2.0); BASO % 0.2 % (0.0-3.0); EOS # 0.4 (0.0-0.7); EOS % 2.2 % (1.5-5.0); GRAN # 12.42 (1.4-6.5); HEMOGLOBIN 10.2 g/dL (12.0-16.0); LYMPH # 2.1 (1.2-3.4); MEAN CELL VOLUME 86.5 fl (80.0-105.0); MEAN CORPUSCULAR HEMOGLOBIN 28.2 pg (25.0-35.0); MEAN CORPUSCULAR HGB CONC 32.6 g/dl (31.0-37.0); MONO # 0.9 (0.1-0.6); MONO % 5.6 % (1.0-6.0); RBC 3.62 10^6/uL (3.5-6.1); RED CELL DISTRIBUTION WIDTH 18.7 % (11.5-14.5); WHITE BLOOD COUNT 15.7 10^3/ul (4.5-11.0)
[2018-03-19 07:27] LABS: ALB/GLOB RATIO 0.7 (1.1-1.8); ALT/SGPT 49 U/L (7-56); AST/SGOT 49 U/L (14-36); BLOOD UREA NITROGEN 8 mg/dL (7-21); CALCIUM 7.7 mg/dL (8.4-10.5); GFR AFRICAN-AMERICAN > 60; GFR NON-AFRICAN AMERICAN > 60
[2018-03-19 07:54] VITALS: BP 107/76; PULSE 54; TEMP 99.4; O2SAT 91
[2018-03-19] MEDS: Potassium & Sodium Phosphate PO SCH (09:20)
--- NOTE | 2018-03-19 23:09 | CP.PCM.PN ---
Subjective - Date & Time of Evaluation Date of Evaluation: 03/19/18 Time of Evaluation: 11:00 - Subjective Subjective: Infectious Disease Follow Up: March 19, 2018 87 yo AA female brought in from home with a large Stage IV sacral decubiti ulceration. There are sinus tracts present and a large eschar. Malodorous discharge from the wound. Sacral bone clearly visible in center of wound. Patient herself is unable to provide any information due to her numerous medical conditions. The patient is awake but with difficulty speaking especially with her poor dentition. The patient is still very confused... although family states that she is more coherent normally. Patient with previous admission in January 2018. Previous debridement. Taken to OR for debridement with surgery during this hospitalization. Wound vac in place. On the whole, the patient appears comfortable. Possible discharge to [facility] today? Objective - Vital Signs/Intake and Output Vital Signs (last 24 hours): Temp Pulse Resp BP Pulse Ox 99.4 F 54 L 20 107/76 91 L 03/19/18 06:00 03/19/18 06:00 03/19/18 06:00 03/19/18 06:00 03/19/18 06:00 - Labs Labs: 03/19/18 06:00 03/19/18 06:00 PT 12.3 SECONDS (9.4-12.5) 03/13/18 13:00 INR 1.07 (0.93-1.08) 03/13/18 13:00 APTT 29.7 Seconds (25.1-36.5) 03/13/18 13:00 - Constitutional Appears: Non-toxic, No Acute Distress, Chronically Ill - Head Exam Head Exam: ATRAUMATIC, NORMOCEPHALIC Additional comments: Full Dentures - Eye Exam Eye Exam: EOMI, PERRL Pupil Exam: NORMAL ACCOMODATION, PERRL - ENT Exam ENT Exam: Mucous Membranes Moist, Normal External Ear Exam, TM's Normal Bilaterally - Neck Exam Neck Exam: Full ROM, Normal Inspection - Respiratory Exam Respiratory Exam: Clear to Ausculation Bilateral, NORMAL BREATHING PATTERN. absent: Rales, Rhonchi, Wheezes - Cardiovascular Exam Cardiovascular Exam: REGULAR RHYTHM, RRR, +S1, +S2 - GI/Abdominal Exam GI & Abdominal Exam: Soft, Normal Bowel Sounds. absent: Distended, Tenderness - Extremities Exam Additional comments: thin, weak - Neurological Exam Neurological Exam: Alert, Awake Additional comments: AAO x 1, orientated to self at best. - Psychiatric Exam Additional comments: Demented and Confused. - Skin Additional comments: 7cm x 4cm x 5 cm deep Stage IV sacral decubitus ulcer present with granulation tissue, Bone is present in base of the ulcer, malodorous discharge no longer present on exam, bilateral hip replacement scars noted, no other scars noted on exam. Taken to OR for debridement of the sacral decubiti ulcer a few days ago. Wound vac in place. Assessment and Plan - Assessment and Plan (Free Text) Assessment: 87 yo AA female with large stage IV sacral decubiti ulceration with malodorous discharge. Noted the patient started on Meropenem and IV Vancomycin for antibiotic care. Will deescalate as cultures return. Local wound care. The patient had debridement 03/14/2018. Previous cultures have shown ESBL - E. Coli and Enterococcus growth in the sacral decubiti. Patient has leukocytosis of 16.4. She has been afebrile. Supportive care. ESR 42. Current cultures showing Proteus and Enterococcus. Both are sensitive to ampicillin. Continue with Unasyn IV. Considering 6 weeks of antibiotics. Assumed osteomyelitis given initial appearance. Apparently, the patient is being discharged to [facility] this morning. [facility] is the destination. Thank you for allowing me to participate in the care of the patient, we will follow with you.
--- NOTE | 2018-03-20 08:06 | DS ---
DATE OF EXAM: 03/19/2018 FINAL DIAGNOSES: Stage IV sacral decubitus with wound culture showing Proteus mirabilis and Enterococcus faecalis, chronic Alzheimer's dementia, recent hypernatremia resolved, hypokalemia resolved, hyperlipidemia, anemia of chronic disease, degenerative arthritis, bedridden status. DISPOSITION: [facility] for five additional weeks of parenteral antibiotics, wound care, and physical therapy. DISCHARGE MEDICATIONS: Unasyn 3 g IV every 6 hours via her PICC line for the next 5 weeks, Aricept 10 mg p.o. at bedtime, Lipitor 10 mg p.o. at dinner time, Remeron 15 mg p.o. at bedtime, Zofran 4 mg IV every 6 hours p.r.n. nausea or vomiting, Tylenol 650 p.o. every 6 hours p.r.n. fever or pain. The patient will have a wound care consultation in the a.m. at the [facility]. She will also have Ensure 1 can p.o. b.i.d. and a heart-healthy pureed diet with aspiration precautions. at all times, air mattress and frequent rotations every 2 hours with a bladder scan p.r.n. and instructions for straight cathing of her bladder for any urinary retention greater than 500 mL. Her orders were reviewed in detail with [facility] nurse, Ronda Fuentes, registered nurse. SUMMARY: This 87-year-old female was admitted [facility] with a bed sore from home that was a stage IV sacral ulcer that grew Proteus mirabilis and Enterococcus faecalis, sensitive to Unasyn . The patient had the sacral ulcer debrided by Dr. Angel Brunner from Surgery and was seen in consultation by Dr. Sarthak Monroe from Infectious Disease, who recommended a complete course of 6 weeks of parenteral antibiotics. The patient at the time of discharge has a PEG tube in place. She is lying in bed and tolerating diet, medication, and wound care instructions. Discharge vital signs showed temperature 99.4, respirations 20, pulse 54, blood pressure 107/76, pulse ox 95% on room air. White count 15,700, hemoglobin 10.2, hematocrit 31.3, platelets 171,000. Sodium 133, K 4.2, chloride 99, bicarb 31, BUN 8, creatinine 0.5, random blood sugar 143, magnesium 1.7. Bilirubin 0.4, AST 49, ALT 49, alk phos 81, albumin 2. Urine culture showed no growth. Patient is medically stable for transfer to the subacute rehab in [place], [place]. Greater than 35 minutes was spent in the care management, review of labs, orders, and instructions with [facility] nursing as well as Ronda Fuentes at [facility]. All questions were answered. Miranda Meraz MD MTDD
== END 2018-03-19 11:42 | DRG 592 ==
LOC: ED 10:14 → ERH 14:22 → 3RNO 15:39
PROVIDERS: ADMIT Internal Medicine; ATTEND Internal Medicine
PROC: 0HB6XZZ Excision of Back Skin, External Approach (ICD-10-PCS; principal; 2018-03-14)
PROC: 02HV33Z Insertion of Infusion Device into Superior Vena Cava, Percutaneous Approach (ICD-10-PCS; 2018-03-16)
DX: L89.154 Pressure ulcer of sacral region, stage 4 (principal); E87.0 Hyperosmolality and hypernatremia; F02.80 Dementia in other diseases classified elsewhere, unspecified severity, without behavioral disturbance, psychotic disturbance, mood disturbance, and anxiety; G30.9 Alzheimer's disease, unspecified; B96.4 Proteus (mirabilis) (morganii) as the cause of diseases classified elsewhere; D63.8 Anemia in other chronic diseases classified elsewhere; E78.00 Pure hypercholesterolemia, unspecified; F41.1 Generalized anxiety disorder; E87.6 Hypokalemia; F32.9 Major depressive disorder, single episode, unspecified; Z74.01 Bed confinement status; Z96.643 Presence of artificial hip joint, bilateral; Z96.653 Presence of artificial knee joint, bilateral; Z87.891 Personal history of nicotine dependence

== ENCOUNTER 2018-04-01 10:49 | Inpatient (IN) | payer MEDICARE, BC ==
--- NOTE | 2018-04-01 11:02 | ED PDOC ---
Arrival/HPI - General Time Seen by Provider: 04/01/18 10:52 Historian: EMS - History of Present Illness Narrative History of Present Illness (Text): 04/01/18 11:02 87 year old female with PMH of dementia and sacral decubitus ulcer BIBA from shelter for evaluation of decreased diet intake since 7 am this morning. As per EMS, the patient was sent from shelter for non-compliance with diet intake and evaluation for sacral ulcer. HPI and ROS limited due to patient's limited response. PMD: Dr. Meraz Time/Duration: 4-6 hours, Other (since 7 am this morning ) Symptom Onset: Gradual Symptom Course: Unchanged Activities at Onset: Light Context: Other (Correction) Past Medical History - Provider Review Nursing Documentation Reviewed: Yes - Infectious Disease Hx of Infectious Diseases: None - Tetanus Immunization Tetanus Immunization: Unknown - Cardiac Hx Cardiac Disorders: Yes - Pulmonary Hx Respiratory Disorders: No - Neurological Hx Neurological Disorder: Yes Hx Alzheimer's Disease: Yes Hx Dementia: Yes - HEENT Hx HEENT Disorder: No (WEARS RX GLASSES) - Renal Hx Renal Disorder: No - Endocrine/Metabolic Hx Endocrine Disorders: No - Hematological/Oncological Hx Cancer: No - Integumentary Hx Dermatological Disorder: Yes (BILATERAL KNEE EDEMA +3) Other/Comment: left buttock skin tear, 0.4cm x 3cm wound bed red,b/l buttock stage 2 pressure ulcer wound bed red 2cm x 5cm unapproximated - Musculoskeletal/Rheumatological Hx Falls: Yes (past) - Gastrointestinal Hx Gastrointestinal Disorders: No - Genitourinary/Gynecological Hx Genitourinary Disorders: Yes Hx Incontinence: Yes - Psychiatric Hx Psychophysiologic Disorder: No Hx Anxiety: No Hx Bipolar Disorder: No Hx Depression: No Hx Emotional Abuse: No Hx Hallucinations: No Hx Panic Disorder: No Hx Post Traumatic Stress Disorder: No Hx Psychosis: No Hx Physical Abuse: No Hx Schizophrenia: No Hx Sexual Abuse: No Hx Substance Use: No - Surgical History Hx Mastectomy: No - Anesthesia Hx Anesthesia: Yes Hx Anesthesia Reactions: No Hx Malignant Hyperthermia: No - Suicidal Assessment Feels Threatened In Home Enviroment: No Family/Social History - Physician Review Nursing Documentation Reviewed: Yes Family/Social History: Unknown Family HX Smoking Status: Never Smoked Hx Alcohol Use: No Hx Substance Use: No Hx Substance Use Treatment: No Allergies/Home Meds Allergies/Adverse Reactions: Allergies No Known Allergies Allergy (Verified 03/13/18 10:33) Home Medications: Home Meds Medication Instructions Recorded Confirmed Donepezil [Aricept] 1 tab PO HS 01/18/18 04/01/18 Acetaminophen [Children's Pain 650 mg PO PRN PRN 04/01/18 04/01/18 Reliever] Atorvastatin [Lipitor] 10 mg PO HS 04/01/18 04/01/18 Lactose-Reduced Food [Ensure Plus 240 ml PO DAILY 04/01/18 04/01/18 240 ml] Magnesium Hydroxide [Milk Of 30 ml PO PRN PRN 04/01/18 04/01/18 Magnesia] Mirtazapine [Remeron] 15 mg PO HS 04/01/18 04/01/18 Ondansetron [Zofran Inj] 4 mg IVP Q6 PRN 04/01/18 04/01/18 Review of Systems - Review of Systems Systems not reviewed;Unavailable: Acuity of Condition (Limited patient response) Constitutional: Fatigue Skin: Ulcer Physical Exam Vital Signs Reviewed: Yes Vital Signs Temp Pulse Resp BP Pulse Ox 04/01/18 14:01 106 H 129/52 L 95 04/01/18 13:45 98 F 102 H 18 120/70 04/01/18 13:44 98 F 102 H 22 120/70 94 L 04/01/18 12:27 98 F 109 H 23 100/61 96 04/01/18 11:52 112 H 112/49 L 04/01/18 11:00 98 F 108 H 20 98/68 L 97 Temperature: Afebrile Blood Pressure: Hypotensive Pulse: Tachycardic Respiratory Rate: Normal Appearance: Positive for: Well-Appearing, Non-Toxic, Comfortable Pain Distress: None - Systems Exam Head: Present: Atraumatic, Normocephalic Pupils: Present: PERRL Extroacular Muscles: Present: EOMI Conjunctiva: Present: Normal Mouth: Present: Moist Mucous Membranes Respiratory/Chest: Present: Rhonchi (Ronchi in right lower lobe). No: Clear to Auscultation, Good Air Exchange, Respiratory Distress, Accessory Muscle Use Cardiovascular: Present: Regular Rate and Rhythm, Normal S1, S2. No: Murmurs Abdomen: No: Tenderness, Distention, Peritoneal Signs Back: Present: Normal Inspection Upper Extremity: Present: Normal Inspection, Other (Picc Line to left upper arm , no surrounding erythema or discharge). No: Cyanosis, Edema Lower Extremity: Present: Normal Inspection. No: Edema Neurological: Present: GCS=15, CN II-XII Intact, Speech Normal Skin: Present: Warm, Dry, Normal Color. No: Rashes Medical Decision Making ED Course and Treatment: 04/01/18 11:03 Impression: 87 year old female with PMH of dementia and sacral decubitus ulcer BIBA from shelter for evaluation of decreased diet intake since 7 am this morning. Plan: -- VBG -- EKG -- Labs -- Chest X-ray -- IV fluids -- Blood Culture -- Urine Culture -- UA -- Reassess and disposition Prior Visits: Notes and results from previous visits were reviewed. Progress Notes: Patient seen and examined. She is afebrile but tachycardic and mildly hypotensive. 1L NS bolus initiated. Labs, including blood cultures, drawn. Leukocytosis and lactic acidosis noted. Additional 1.5L NS bolus ordered so that patient will receive a total of 2.5L bolus. Antibiotics ordered as well. Roman catheter inserted by RN. UA and urine culture collected. 04/01/18 11:51 CODE SEPSIS ACTIVATED 04/01/18 12:[address] Meraz, who is aware and agrees with Emergency department management plan to admit patient to remote tele, and please give vancomycin and maxepime. Vanc/zosyn/levaquin was previously already ordered and levaquin already given, so zosyn ordered cancelled and maxepime ordered along with vancomycin. Requests Dr. Monroe, Infection Disease, on consult. 04/01/18 12:35 EKG: Ordered, reviewed, and independently interpreted the EKG. Rate : 100 BPM Rhythm : NSR Interpretation : Occasional PAC, Left axis deviation, QTC 456 ms, no ST-segment elevations or depressions. 04/01/18 12:45 Chest X-ray reviewed, shows patchy infiltrates at bilateral bases. 04/01/18 13:46 Chest X-ray reviewed by radiologist, shows worsening airspace disease in the lungs may represent pulmonary edema or multifocal pneumonia. Follow-up is advised. Patient admitted for sepsis, source likely pulmonary. - Lab Interpretations Lab Results: 04/01/18 11:25 04/01/18 11:25 Lab Results 04/01/18 11:50: Urine Color Yellow, Urine Appearance Slight-cloudy, Urine pH 6.0 , Ur Specific [place] 1.020, Urine Protein Trace H, Urine Glucose (UA) Negative , Urine Ketones Trace H, Urine Blood Large H, Urine Nitrate Negative, Urine Bilirubin Negative, Urine Urobilinogen 0.2, Ur Leukocyte Esterase Negative, Urine RBC 25 - 30, Urine WBC 2 - 5, Ur Epithelial Cells 6 - 8, Urine Bacteria Small 04/01/18 11:25: Sodium 144, Chloride 106, Potassium 3.6, Carbon Dioxide 18 L, Anion Gap 23 H, BUN 19, Creatinine 0.7, Est GFR ( Amer) > 60, Est GFR ( Non-Af Amer) > 60, Random Glucose 117 H, Calcium 7.9 L, Phosphorus 3.5, Magnesium 2.1, Total Bilirubin 0.7, AST 130 H D, ALT 75 H, Alkaline Phosphatase 93, Total Protein 5.4 L, Albumin 2.4 L, Globulin 2.9, Albumin/Globulin Ratio 0.8 L 04/01/18 11:25: pO2 35, VBG pH 7.30 L, VBG pCO2 36.0 L, VBG HCO3 17.7 L, VBG Total CO2 18.8 L, VBG O2 Sat (Calc) 62.1, VBG Base Excess -7.9 L, VBG Potassium 3.6, Sodium 143.0, Chloride 107.0, Glucose 122 H, Lactate 10.9 H*, FiO2 21.0, Venous Blood Potassium 3.6 04/01/18 11:25: PT 18.6 H, INR 1.60 H, APTT 35.5 04/01/18 11:25: WBC 32.7 H* D, RBC 3.52, Hgb 10.1 L, Hct 31.1 L, MCV 88.4, MCH 28.7, MCHC 32.5, RDW 19.6 H, Plt Count 221, MPV 9.7, Gran % 89.7 H, Lymph % ( Auto) 4.7 L, Edgar % (Auto) 5.5, Eos % (Auto) 0.0 L, Baso % (Auto) 0.1, Gran # 29.37 H, Lymph # (Auto) 1.6, Edgar # (Auto) 1.8 H, Eos # (Auto) 0.0, Baso # (Auto ) 0.02, Neutrophils % (Manual) 92 H, Band Neutrophils % 1, Lymphocytes % (Manual ) 3 L, Monocytes % (Manual) 4, Toxic Granulation 3+, Platelet Evaluation Normal , Hypochromasia 1+, Rouleaux 2+ - RAD Interpretation Radiology Orders: 04/01/18 11:14 CHEST PORTABLE [RAD] Stat - Medication Orders Current Medication Orders: Acetaminophen (Tylenol 650 Mg Supp) 650 mg RC Q4H PRN PRN Reason: Fever >100.4 F Atorvastatin Calcium (Lipitor) 10 mg PO DIN CHRISTINA Donepezil HCl (Aricept) 10 mg PO HS CHRISTINA Famotidine (Pepcid) 20 mg PO HS CHRISTINA Cefepime HCl (Maxipime 1gm) 1 gm in 100 mls @ 100 mls/hr IVPB Q24H CHRISTINA Vancomycin HCl (Vancomycin 750 Mg In Ns) 750 mg in 250 mls @ 167 mls/hr IVPB Q12H CHRISTINA Dextrose/Sodium Chloride (Dextrose 5%/0.9% Ns 1000 Ml) 1,000 mls @ 125 mls/hr IV .Q8H CHRISTINA Levalbuterol HCl (Xopenex) 0.63 mg IH [id number] PRN PRN Reason: Shortness of Breath Mirtazapine (Remeron) 15 mg PO HS CHIRSTINA Ondansetron HCl (Zofran Inj) 4 mg IVP Q6H PRN PRN Reason: Nausea/Vomiting Discontinued Medications Famotidine (Pepcid) 20 mg PO HS CHRISTINA Sodium Chloride (Sodium Chloride 0.9%) 1,000 mls @ 999 mls/hr IV .Q1H1M STA Stop: 04/01/18 12:15 Last Admin: 04/01/18 11:34 Dose: 999 mls/hr eMAR Start Stop Document 04/01/18 11:34 GMI (Rec: 04/01/18 11:35 GMI [id number]) Intravenous Solution Start Date 04/01/18 Start Time 11:35 End Date 04/01/18 End time 12:35 Total Infusion Time 60 Sodium Chloride (Sodium Chloride 0.9%) 1,000 mls @ 999 mls/hr IV .Q1H1M STA Stop: 04/01/18 12:49 Last Admin: 04/01/18 12:12 Dose: 999 mls/hr eMAR Start Stop Document 04/01/18 12:12 GMI (Rec: 04/01/18 12:12 GMI [id number]) Intravenous Solution Start Date 04/01/18 Start Time 12:11 Vancomycin HCl (Vancomycin 1gm) 1 gm in 250 mls @ 167 mls/hr IVPB STAT STA PRN Reason: Protocol Stop: 04/01/18 13:18 Last Admin: 04/01/18 12:52 Dose: 167 mls/hr Sodium Chloride (Sodium Chloride 0.9%) 500 mls @ 999 mls/hr IV .Q31M STA Stop: 04/01/18 12:28 Last Admin: 04/01/18 13:15 Dose: 999 mls/hr eMAR Start Stop Document 04/01/18 13:15 GMI (Rec: 04/01/18 13:15 GMI [id number]) Intravenous Solution Start Date 04/01/18 Start Time 13:15 Cefepime HCl (Maxipime 1gm) 1 gm in 100 mls @ 100 mls/hr IVPB ONCE ONE PRN Reason: Protocol Stop: 04/01/18 13:27 Last Admin: 04/01/18 13:47 Dose: 100 mls/hr Levofloxacin/Dextrose (Levaquin 750mg) 750 mg IVPB ONCE ONE PRN Reason: Protocol Stop: 04/01/18 11:50 Last Admin: 04/01/18 12:03 Dose: 750 mg - Jennifer Statement The provider has reviewed the documentation as recorded by the Jennifer Hutchinson training under [facility] All medical record entries made by the Jennifer were at my direction and personally dictated by me. I have reviewed the chart and agree that the record accurately reflects my personal performance of the history, physical exam, medical decision making, and the department course for this patient. I have also personally directed, reviewed, and agree with the discharge instructions and disposition. Disposition/Present on Arrival - Present on Arrival Any Indicators Present on Arrival: Yes History of DVT/PE: No History of Uncontrolled Diabetes: No Urinary Catheter: No History of Decub. Ulcer: Yes History Surgical Site Infection Following: None - Disposition Have Diagnosis and Disposition been Completed?: Yes Diagnosis: Sepsis, Multifocal pneumonia, Sacral decubitus ulcer Disposition: HOSPITALIZED Disposition Time: 12:29 Condition: FAIR
[2018-04-01] MEDS ORDERED: Sodium Chloride 0.9% 1,000 ML IV STA ×2 (11:15→11:49)
[2018-04-01 11:42] LABS: VENOUS BLOOD GAS BASE EXCESS -7.9 mmol/L (0.0-2.0); VENOUS BLOOD GAS PO2 35 mm/Hg (30-55)
[2018-04-01] MEDS ORDERED: levoFLOXacin 750 mg in D5W 150 ML BAG IVPB ONE (11:49)
[2018-04-01] MEDS ORDERED: Piperacill/Tazo 4.5gm in NS 4.5 GM/100 ML BAG IVPB STA (11:49)
[2018-04-01] MEDS ORDERED: Vancomycin 1gm in NS 250ml 1 GM/250 ML BAG IVPB STA (11:49)
[2018-04-01 11:50] LABS: BASO # 0.02 K/mm3 (0.0-2.0); BASO % 0.1 % (0.0-3.0); GRAN # 29.37 (1.4-6.5); GRAN % 89.7 % (50.0-68.0); HEMOGLOBIN 10.1 g/dL (12.0-16.0); LYMPH # 1.6 (1.2-3.4); LYMPH % 4.7 % (22.0-35.0); MEAN CELL VOLUME 88.4 fl (80.0-105.0); MEAN CORPUSCULAR HEMOGLOBIN 28.7 pg (25.0-35.0); MEAN CORPUSCULAR HGB CONC 32.5 g/dl (31.0-37.0); MEAN PLATELET VOLUME 9.7 fl (7.0-11.0); MONO # 1.8 (0.1-0.6); MONO % 5.5 % (1.0-6.0); PLATELET COUNT 221 10^3/uL (120.0-450.0); RBC 3.52 10^6/uL (3.5-6.1); RED CELL DISTRIBUTION WIDTH 19.6 % (11.5-14.5)
--- NOTE | 2018-04-01 11:52 | PCM.SEPTIC ---
Sepsis Progress Note - Reassessment Type Date of Evaluation: 04/01/18 Time of Evaluation: 14:25 Reassessment Type: Non-invasive reassessment - Non Invasive Reassessment Were the most recent vital sign reviewed: Yes Vital Sign (Latest): Temp Pulse Resp BP Pulse Ox 98 F 108 H 20 98/68 L 97 04/01/18 11:00 04/01/18 11:00 04/01/18 11:00 04/01/18 11:00 04/01/18 11:00 Cardiovascular: Yes: Regular Rate, Rhythm, Chest Non Tender. No: Edema, Gallop , JVD Respiratory: Yes: Normal Breath Sounds Capillary Refill: Normal (Less than 2 sec) Pulses: Normal Radial Skin: Normal Color, Warm
[2018-04-01] MEDS ORDERED: Sodium Chloride 0.9% 500 ML IV STA (11:58)
[2018-04-01 12:06] LABS: URINE BILIRUBIN NEGATIVE (NEGATIVE); URINE BLOOD LARGE (NEGATIVE); URINE GLUCOSE (UA) NEGATIVE (NEGATIVE); URINE LEUKOCYTE ESTERASE NEGATIVE Leu/uL (NEGATIVE); URINE PROTEIN TRACE mg/dL (<30 mg/dL); URINE UROBILINOGEN 0.2 E.U./dL (<1 E.U./dL)
[2018-04-01 12:07] LABS: INR 1.6 (0.93-1.08); PARTIAL THROMBOPLASTIN TIME 35.5 Seconds (25.1-36.5); PROTHROMBIN TIME 18.6 SECONDS (9.4-12.5); WHITE BLOOD COUNT 32.7 10^3/ul (4.5-11.0)
[2018-04-01 12:08] LABS: URINE APPEARANCE SLIGHT-CLOUDY (CLEAR); URINE COLOR YELLOW (YELLOW)
[2018-04-01 12:09] LABS: ALB/GLOB RATIO 0.8 (1.1-1.8); ALBUMIN 2.4 g/dL (3.0-4.8); ALT/SGPT 75 U/L (7-56); AST/SGOT 130 U/L (14-36); BLOOD UREA NITROGEN 19 mg/dL (7-21); CALCIUM 7.9 mg/dL (8.4-10.5); GFR AFRICAN-AMERICAN > 60; GFR NON-AFRICAN AMERICAN > 60
[2018-04-01 12:13] LABS: URINE BACTERIA SMALL (NEG); URINE RBC 25 - 30 /hpf (0-2)
[2018-04-01] MEDS ORDERED: Cefepime 1gm in NS 100ml 1 GM/100 ML BAG IVPB ONE (12:28)
--- NOTE | 2018-04-01 13:15 | RAD ---
Date of service: 04/01/2018 HISTORY: Sepsis Patient COMPARISON: 03/16/2018. FINDINGS: The left PICC line terminates in the SVC. LUNGS: There is worsening airspace disease in both lungs and interstitial thickening. PLEURA: Small right pleural effusion, no pneumothorax apparent. CARDIOVASCULAR: Mild cardiomegaly. Atherosclerotic aortic arch calcifications are present. OSSEOUS STRUCTURES: No significant abnormalities. VISUALIZED UPPER ABDOMEN: Normal. OTHER FINDINGS: None. IMPRESSION: Worsening airspace disease in the lungs may represent pulmonary edema or multifocal pneumonia. Follow-up is advised.
[2018-04-01 13:26] LABS: BAND 1 % (0-2); HYPOCHROMIA 1+; LYMPHOCYTE 3 % (22.0-35.0); MONOCYTE 4 % (1.0-6.0); NEUTROPHIL 92 % (50.0-70.0); PLATELET ESTIMATE NORMAL (NORMAL)
[2018-04-01 13:27] LABS: ROULEAU 2+; TOXIC GRANULATION 3+
[2018-04-01 14:05] VITALS: BMI 28.3
--- NOTE | 2018-04-01 14:13 | CP.PCM.CON ---
History of Present Illness - History of Present Illness History of Present Illness: Infectious Disease Consultation: April 01, 2018 87 yo AA female brought in from home with a large Stage IV sacral decubiti ulceration and poor appetite. Although afebrile, the patient has significant leukocytosis and tachycardia. Sacral bone clearly visible in center of wound. Patient herself is unable to provide any information due to her numerous medical conditions. The patient is awake but with difficulty speaking especially with her poor dentition. The patient is still very confused... although family states that she is more coherent normally in her previous hospitalization her at the beginning of the month. Patient with previous admission in January 2018 and March 2018. Previous debridement. Failure to Thrive. PMHx: Alzheimer's Disease, Dementia, HLD, Severe Degenerative Arthritis, Wheelchair bound. PSHx: Sacral Decubiti, Bilateral Hip Replacement. Allergies: NKDA Social Hx: No EtOH or illicit drug use Ex-smoker Active Medications Acetaminophen (Tylenol 325mg Tab) 650 mg PO Q6H PRN PRN Reason: Temperature Atorvastatin Calcium (Lipitor) 10 mg PO DIN CHRISTINA Collagenase (Santyl) 1 gm TOP BID CHRISTINA Last Admin: 03/13/18 17:42 Dose: 1 applic Donepezil HCl (Aricept) 10 mg PO HS CHRISTINA Vancomycin HCl (Vancomycin 1gm) 1 gm in 250 mls @ 167 mls/hr IVPB Q12H CHRISTINA PRN Reason: Protocol Cefepime Mirtazapine (Remeron) 15 mg PO HS CHRISTINA Ondansetron HCl (Zofran Inj) 4 mg IVP Q6H PRN PRN Reason: Nausea/Vomiting Family Hx: Unable to Obtain ROS: Unable to Obtain Past Patient History - Infectious Disease Hx of Infectious Diseases: None - Tetanus Immunizations Tetanus Immunization: Unknown - Past Medical History & Family History Past Medical History?: Yes - Past Social History Smoking Status: Never Smoked - CARDIAC Hx Cardiac Disorders: Yes - PULMONARY Hx Respiratory Disorders: No - NEUROLOGICAL Hx Neurological Disorder: Yes Hx Alzheimer's Disease: Yes Hx Dementia: Yes - HEENT Hx HEENT Problems: No (WEARS RX GLASSES) - RENAL Hx Chronic Kidney Disease: No - ENDOCRINE/METABOLIC Hx Endocrine Disorders: No - HEMATOLOGICAL/ONCOLOGICAL Hx Cancer: No - INTEGUMENTARY Hx Dermatological Problems: Yes (BILATERAL KNEE EDEMA +3) Other/Comment: left buttock skin tear, 0.4cm x 3cm wound bed red,b/l buttock stage 2 pressure ulcer wound bed red 2cm x 5cm unapproximated - MUSCULOSKELETAL/RHEUMATOLOGICAL Hx Falls: Yes (past) - GASTROINTESTINAL Hx Gastrointestinal Disorders: No - GENITOURINARY/GYNECOLOGICAL Hx Genitourinary Disorders: Yes Hx Incontinence: Yes - PSYCHIATRIC Hx Psychophysiologic Disorder: No Hx Anxiety: No Hx Bipolar Disorder: No Hx Depression: No Hx Emotional Abuse: No Hx Hallucinations: No Hx Panic Symptoms: No Hx Post Traumatic Stress Disorder: No Hx Psychosis: No Hx Physical Abuse: No Hx Schizophrenia: No Hx Sexual Abuse: No Hx Substance Use: No - SURGICAL HISTORY Hx Mastectomy: No - ANESTHESIA Hx Anesthesia: Yes Hx Anesthesia Reactions: No Hx Malignant Hyperthermia: No Meds Allergies/Adverse Reactions: Allergies Allergy/AdvReac Type Severity Reaction Status Date / Time No Known Allergies Allergy Verified 03/13/18 10:33 Physical Exam - Constitutional Appears: Non-toxic, No Acute Distress, Chronically Ill - Head Exam Head Exam: ATRAUMATIC, NORMOCEPHALIC Additional comments: Full dentures - Eye Exam Eye Exam: EOMI, PERRL Pupil Exam: NORMAL ACCOMODATION, PERRL - ENT Exam ENT Exam: Mucous Membranes Moist, Normal External Ear Exam, TM's Normal Bilaterally - Neck Exam Neck exam: Positive for: Full Rom, Normal Inspection - Respiratory Exam Respiratory Exam: Clear to Auscultation Bilateral, NORMAL BREATHING PATTERN. absent: Rales, Rhonchi, Wheezes - Cardiovascular Exam Cardiovascular Exam: REGULAR RHYTHM, RRR, +S1, +S2 - GI/Abdominal Exam GI & Abdominal Exam: Normal Bowel Sounds, Soft. absent: Distended, Tenderness - Extremities Exam Additional comments: thin weak - Neurological Exam Neurological exam: Alert Additional comments: AAO x 1, orientated to self at best. - Psychiatric Exam Additional comments: Demented and Confused. - Skin Additional comments: 7cm x 4cm x 5 cm deep Stage IV sacral decubitus ulcer present with granulation tissue, Bone is present in base of the ulcer, no malodorous discharge, bilateral hip replacement scars noted, no other scars noted on exam. Results - Vital Signs Recent Vital Signs: Last Vital Signs Temp 98 F 04/01/18 13:45 Pulse 102 H 04/01/18 13:45 Resp 18 04/01/18 13:45 BP 120/70 04/01/18 13:45 Pulse Ox 94 L 07/21/18 13:44 - Labs Result Diagrams: 04/01/18 11:25 04/01/18 11:25 Assessment & Plan - Assessment and Plan (Free Text) Assessment: 87 yo AA female with large stage IV sacral decubiti ulceration with malodorous discharge on last hospitalization with debridement at that time. On Cefepime and IV Vancomycin for antibiotic care. Will deescalate as cultures return. Significant leukocytosis to the 30s. Rule out uremia and bacteremia. Supportive care. Check for UTI and pneumonia. Urinalysis not suggestive of UTI. Suspect Sacral decubiti is the main issue. Thank you for allowing me to participate in the care of the patient, we will follow with you.
[2018-04-01] MEDS ORDERED: Vancomycin 1 g Inj IVPB SCH (14:15)
[2018-04-01] MEDS ORDERED: Levalbuterol 0.63 MG/3 ML Inhal Soln UD IH PRN (14:17)
[2018-04-01] MEDS ORDERED: Vancomycin 750mg 750 MG/250 ML BAG IVPB SCH (14:30)
[2018-04-01] MEDS ORDERED: Cefepime 1gm in NS 100ml IVPB SCH (14:30)
[2018-04-01 16:30] LABS: VENOUS BLOOD GAS BASE EXCESS -6.1 mmol/L (0.0-2.0); VENOUS BLOOD GAS PO2 67 mm/Hg (30-55); VENOUS BLOOD PH 7.29 (7.32-7.43)
[2018-04-01 16:56] VITALS: BP 129/76
[2018-04-01] MEDS ORDERED: Dextrose 5%/0.9% NS 1,000 ML IV SCH (17:00)
[2018-04-01 17:53] VITALS: PULSE 76; RESP 22; TEMP 97.3; O2SAT 87
--- NOTE | 2018-04-01 21:22 | CP.PCM.PRO ---
Pronouncement of Note - Clinical Findings Physical Exam: No Response Verbal/Painful Stimuli, Absent Peripheral Pulses{ Carotid & Femoral}, Absent Heart & Breath Sounds, No Pupillary Light Reflex, No Corneal Reflex, Pupils Fixed & Dilated, Absence of Vital Signs - Pronouncement Time Time of Pronouncement of : 21:09 - Notifications Pronouncement Notifications: Atending Notified (spoke with Dr Meraz which reports she will get in contact with pt family) Notcher Notified: Yes - Autopsy Autopsy Requested: No - [place] [id number]
[2018-04-02] MEDS ORDERED: Cefepime (Maxipime) 1 g Inj IVPB SCH (10:00)
--- NOTE | 2018-04-02 12:27 | CARD ---
APPROVED REPORT Date of service: 04/01/2018 EKG Measurement Heart [id number] [id number] <Conclusion> Sinus rhythm with premature atrial complexes Left axis deviation Nonspecific ST and T wave abnormality Abnormal ECG
--- NOTE | 2018-04-02 12:27 | CARD ---
APPROVED REPORT Date of service: 04/01/2018 EKG Measurement Heart [id number] <Conclusion> Sinus rhythm with premature atrial complexes Left axis deviation Nonspecific ST and T wave abnormality Abnormal ECG
--- NOTE | 2018-04-02 16:49 | HP ---
DATE OF EXAM: 04/01/2018 HISTORY AND PHYSICAL AND DISCHARGE SUMMARY DATE OF ADMISSION AND EXPIRATION: 04/01/2018. SUMMARY: This 87-year-old female was admitted through the [facility] ER where she was transferred to from [facility] for evaluation of an infected sacral ulcer, fever and failure to thrive. The patient was admitted after she was noted to have a white blood cell count of 32,700 and a chest x-ray possibly consistent with pneumonia. The patient was fully cultured. She was seen in consultation by Dr. Sarthak Monroe. She was given parenteral antibiotics, IV fluids, pulmonary support. However, given her deconditioned status and DNR/DNI state, no aggressive intervention including intubation or transfer to critical care was entertained. The patient peacefully after being visited by her family. They were notified of her passing and body was released. Miranda Meraz MD [id number]
== END 2018-04-01 21:09 | DRG 592 ==
LOC: ED 10:49 → ERH 12:29 → 3RSO 14:37
PROVIDERS: ADMIT Internal Medicine; ATTEND Internal Medicine
DX: L89.154 Pressure ulcer of sacral region, stage 4 (principal); J18.9 Pneumonia, unspecified organism; D72.829 Elevated white blood cell count, unspecified; E78.5 Hyperlipidemia, unspecified; G30.9 Alzheimer's disease, unspecified; F02.80 Dementia in other diseases classified elsewhere, unspecified severity, without behavioral disturbance, psychotic disturbance, mood disturbance, and anxiety; R62.7 Adult failure to thrive; Z99.3 Dependence on wheelchair; Z96.643 Presence of artificial hip joint, bilateral; Z87.891 Personal history of nicotine dependence; Z91.11 Patient's noncompliance with dietary regimen; Z66 Do not resuscitate; L89.322 Pressure ulcer of left buttock, stage 2; L89.312 Pressure ulcer of right buttock, stage 2; R32 Unspecified urinary incontinence; R40.2412 Glasgow coma scale score 13-15, at arrival to emergency department